=== PATIENT | male | born 1950 | race Caucasian/White ===

== ENCOUNTER 2021-05-31 09:32 | Emergency (ER) | payer MEDICARE, SELFPAY ==
--- NOTE | ~2021-05-31 | XR_ITS ---
EXAMINATION: XR chest 2V DATE: 05/31/2021 10:28 INDICATION: Dyspnea on exertion. TECHNIQUE: Frontal and lateral views of the chest were obtained. COMPARISON: Chest single view 03/19/2016, CT abdomen and pelvis 11/28/10 FINDINGS: The chest demonstrates clear lungs without pneumonia, pleural effusion, or pneumothorax. Th e heart size is normal. There is mild chronic anterior wedging of multiple thoracic vertebral bodies. IMPRESSION: 1. No acute cardiopulmonary disease. Reviewed, dictated and finalized at location A. [employer]
[2021-05-31 09:36] VITALS: BP 157/61; PULSE 67; RESP 18; TEMP 36.5; O2SAT 98
--- NOTE | 2021-05-31 10:14 | ECG_ITS ---
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
--- NOTE | 2021-05-31 10:18 | ED.SOB ---
HPI - SOB/Dyspnea General Chief Complaint: Shortness of Breath/Dyspnea Stated Complaint: Dyspnea Time Seen by Provider: 05/31/21 10:14 Source: patient Mode of arrival: ambulatory Limitations: no limitations History of Present Illness HPI Narrative: Patient is a 70-year-old male, with PMHx of HTN, HLD, GERD, and valvular regurgitation, who presents the ED with complaints of shortness breath on exertion. Patient reports he walks on the treadmill daily. Yesterday, he noticed himself feeling more fatigued than usual after walking on the treadmill. This morning, he rode his exercise bike for 20 minutes, strenuous for 15 minutes. He reported feeling fatigued in his arms and legs after riding the bike, described as a heaviness in his legs. He then began to walk on the treadmill and noticed that he had to stop 3-4 times to catch his breath after a few minutes. He states this was unusual for him is usually can walk 10+ minutes without having to stop. Patient then got dressed and walked to and from his garage (about 70 feet) and reported he felt very fatigued and short of breath while walking. He then decided to present to the ED. Patient also reports having a history of a hiatal hernia with GERD and states he has been having increased issues with acid reflux lately. He takes omeprazole daily for this. He reported having fullness in his upper chest today, which he attributed to his acid reflux. He denied any burning pain, tightness, pressure in his chest. He also denies any recent infectious symptoms, fever, chills, cough, abdominal pain, nausea, vomiting, BLE pain or edema. Patient has seen Dr. Ahumada in the past. He last had a stress test 5 years ago, which was normal at that time. He has never had a cardiac catheterization. Related Data Home Medications Medication Instructions Recorded Confirmed magnesium oxide 500 mg tablet 500 mg PO DAILY 01/12/20 01/17/21 abvmczhnbmnt-hhr-zebzb acid-vit 1 tablet PO DAILY 01/12/20 01/17/21 K-lycop 400 mcg-20 mcg-370 mcg tablet amlodipine 05/31/21 carvedilol 05/31/21 doxazosin mg 05/31/21 hydralazine 05/31/21 irbesartan mg 05/31/21 omeprazole 05/31/21 trospium mg 05/31/21 Allergies Allergy/AdvReac Type Severity Reaction Status Date / Time No Known Allergies Allergy Verified 05/31/21 10:29 Review of Systems Review of Systems: CONSTITUTIONAL: Reports increased fatigue. Denies fever, chills, or sweats. ENT: Denies rhinorrhea, congestion. CARDIOVASCULAR: Reports fullness in chest. Denies chest pressure, tightness, pain. Denies palpitations or edema. RESPIRATORY: Reports dyspnea on exertion. Denies cough. GASTROINTESTINAL: Denies abdominal pain, nausea, vomiting, or diarrhea. MUSCULOSKELETAL: Denies back pain, joint pain, or myalgia. NEUROLOGIC: Denies headache, numbness, or weakness. All systems reviewed & are unremarkable except as noted in HPI and below PMFSH Past Medical History Medical History Bladder cancer Blood glucose elevated Broken wrist Dyslipidemia Hiatal hernia with GERD Hypertension Valvular regurgitation Surgical History Surgical History History of surgery on wrist History of total right knee replacement (TKR) Status post surgical removal and fulguration of bladder neoplasm Family History Family History Mother Hypertension Cerebrovascular accident Family history of malignant neoplasm of urinary bladder Father Family history of cardiovascular disease Acute myocardial infarction Family history of coronary artery disease Social History Social History Smoking status: Former smoker Second hand tobacco smoke exposure: No Alcohol intake: current Alcohol use details: 2 beers daily. Substance use: never S
[2021-05-31 10:46] VITALS: BP 156/68; PULSE 64; RESP 13; O2SAT 97
[2021-05-31 11:02] VITALS: BP 158/65; PULSE 59; RESP 14; O2SAT 97
[2021-05-31 11:09] LABS: Partial Thromboplastin Time 54.1 SECONDS (22.3-36.8)
[2021-05-31 11:12] LABS: Alanine Aminotransferase 28 U/L (4-50); Albumin Level 4.5 g/dL (3.5-5.1); Alkaline Phosphatase 75 U/L (38-126); Anion Gap 6 mmol/L (8-16); Aspartate Amino Transferase 39 U/L (17-59); Bilirubin,Total 0.7 mg/dL (0.2-1.3); Blood Urea Nitrogen 20 mg/dL (9-20); Calcium 8.9 mg/dL (8.4-10.2); Carbon Dioxide 28 mmol/L (22-30); Chloride 102 mmol/L (98-107); Estimated CRCL calculation 77 ml/min; Estimated Glomerular Filt Rate > 60; Glucose 127 mg/dL (65-110); Potassium 4.4 mmol/L (3.4-5.0); Sodium 136 mmol/L (137-145)
[2021-05-31 11:14] LABS: Prothrombin Time 12.7 Seconds (11.1-14.7)
[2021-05-31 11:17] VITALS: BP 161/64; PULSE 57; RESP 14; O2SAT 98
[2021-05-31 11:24] LABS: NT Pro B Type Natriuretic Pept 519 pg/mL (5-100); Troponin I < 0.012 ng/mL (0.000-0.034)
[2021-05-31 11:47] VITALS: BP 163/67; PULSE 50; RESP 14; O2SAT 97
[2021-05-31 12:01] LABS: Basophils Percent Auto 0.3 % (0.2-1.2); Eosinophils Absolute Auto 0.1 K/mm3 (0-0.3); Eosinophils Percent Auto 1.2 % (0-4.4); Hematocrit 39.9 % (42.0-52.0); Hemoglobin 13.3 g/dL (14.0-18.0); Immature Granulocyte Absolute 0.02 K/mm3 (0.00-0.031); Immature Granulocyte Percent A 0.3 % (0-0.5); Lymphocytes Absolute Auto 1.02 K/mm3 (0.9-3.2); Lymphocytes Percent Auto 16.9 % (18.3-44.2); Mean Corpuscular HGB Conc 33.3 g/dl (32-36); Mean Corpuscular Hemoglobin 31.8 pg (26-34); Mean Corpuscular Volume 95.5 fl (80-100); Monocytes Absolute Auto 0.5 K/mm3 (0.1-0.6); Monocytes Percent Auto 7.6 % (2.6-8.5); Neutrophils Absolute Auto 4.5 K/mm3 (1.3-6.7); Neutrophils Percent Auto 73.7 % (45.5-73.1); Platelet Count Result 218 k/mm3 (150-375); Red Blood Count 4.18 M/mm3 (4.6-6.20); Red Cell Distribution Width 13.7 % (11.5-14.5); White Blood Count 6.1 K/mm3 (4.5-10.0)
[2021-05-31 14:10] LABS: Troponin I 0.012 ng/mL (0.000-0.034)
[2021-05-31 14:40] VITALS: BP 144/65; PULSE 56; RESP 14; O2SAT 99
== END 2021-05-31 14:40 | disposition home or self-care (01) ==
PROVIDERS: Physician Assistant; Emergency Provider Emergency Medicine; PCP Family Medicine
DX: R06.02 Shortness of breath (principal); R00.1 Bradycardia, unspecified; I10 Essential (primary) hypertension; K21.9 Gastro-esophageal reflux disease without esophagitis
CPT/HCPCS: 36415; 71046; 80053; 83880; 84484; 85025; 85610; 85730; 93005; 99284

== ENCOUNTER 2021-06-04 12:14 | Observation (INO) | payer MEDICARE, SELFPAY ==
[2021-06-04] VITALS (9 sets, daily range): BP systolic 137–174; BP diastolic 55–84; PULSE 56–68; RESP 12–20; TEMP 36.4–37; O2SAT 97–100; BMI 25.2
--- NOTE | ~2021-06-04 | US_ITS ---
EXAMINATION: US carotid duplex BI DATE: 06/06/2021 16:45 INDICATION: Dizziness. TECHNIQUE: Grayscale, color Doppler, and pulsed Doppler images of the cervical carotid arteries were obtained. The degree of vessel stenosis is placed in one of the following categories: normal, <50%, 5 0-69%, >=70% but less than near-occlusion, near-occlusion, or total occlusion. Note that percent sten osis relative to normal distal artery lumen diameter is indirectly measured from velocity measurement s as described by Jay, et al. Radiology 2003; 229:340-346. Notes: Normal: Peak systolic velocity <125 centimeters/sec and no plaque <50%. Peak systolic velocity <125 ( EDV <40; ICA/CCA PSV ratio <2.0; used these factors only a tandem lesions or low cardiac output or co ntralateral disease) 50-69 %: PSV 125-230 (EDV 40-100; ratio 2-4) >= 70% but less than near occlusion: PSV greater than 230 (EDV > 100; ratio> 4.0) Near Occlusion: PSV that is variable; markedly narrowed lumen Occlusion: Absent flow on color/spectral Doppler and no lumen on barksdale scale. COMPARISON: None. FINDINGS: RIGHT: The right common carotid artery (CCA) peak systolic velocity (PSV) is 87 cm/s. The right internal car otid artery (ICA) PSV is 74 cm/s. The right ICA end-diastolic velocity (EDV) is 19 cm/s. The right IC A/CCA PSV ratio is 0.8. The external carotid artery (ECA) PSV is 232 cm/s. There is antegrade flow in the right vertebral artery. LEFT: The left CCA PSV is 97 cm/s. The left ICA PSV is 99 cm/s. The left ICA EDV is 22 cm/s. The left ICA/C CA PSV ratio is 1.0. The ECA PSV is 346 cm/s. There is antegrade flow in the left vertebral artery. IMPRESSION: 1. Less than 50% stenosis in the right internal carotid artery by sonographic criteria. 2. Less than 50% stenosis in the left internal carotid artery by sonographic criteria. Reviewed, dictated and finalized at location B. IMPRESSION: 1. Less than 50% stenosis in the right internal carotid artery by sonographic porsche houser. 2. Less than 50% stenosis in the left internal carotid artery by sonographic aaron kowalski.
--- NOTE | ~2021-06-04 | XR_ITS ---
EXAMINATION: XR chest 2V DATE: 06/04/2021 13:22 INDICATION: Dyspnea. TECHNIQUE: Frontal and lateral views of the chest were obtained. COMPARISON: Chest 2 views 05/31/2021, CT abdomen and pelvis 11/28/2010 FINDINGS: The chest demonstrates clear lungs without pneumonia, pleural effusion, or pneumothorax. Th e heart size is normal. There is mild chronic anterior wedging of multiple vertebral bodies. IMPRESSION: 1. No acute cardiopulmonary disease. Reviewed, dictated and finalized at location A.
--- NOTE | ~2021-06-04 | CT_ITS ---
EXAMINATION: CTA chest PE protocol DATE: 06/04/2021 17:31 INDICATION: Chest pain, shortness of breath and elevated d-dimer. TECHNIQUE: Computed tomography (CT) pulmonary angiogram of the chest was performed with 100 mL Omnipa que-350 intravenous contrast. Additional 3D reconstructions utilizing coronal maximum intensity proje ction (MIP) were performed. Automated exposure control and iterative reconstruction technique were em ployed. The dose-length product was 492.39 mGy-cm. COMPARISON: None FINDINGS: Adequate but suboptimal contrast opacification of the pulmonary arteries. There is mild streak artifa ct from dense contrast in the superior vena cava and right atrium. No significant motion artifact yie lding diagnostic quality study which demonstrates no pulmonary embolism. 3 mm left upper lobe nodule. No pneumonia, pulmonary edema, pleural effusion or pneumothorax. Heart size is normal. Atherosclerot ic coronary artery calcific lesion. Small pericardial effusion. Some atherosclerotic calcific a cyst along the normal caliber thoracic aorta with no dissection. Visualized upper abdomen is unremarkable. Thoracic kyphosis with chronic appearing mild anterior wedging of several mid to lower thoracic vert ebral bodies. Moderate to severe spondylosis thoracic and lower cervical spine along with bridging os teophytes at multiple levels consistent with diffuse idiopathic skeletal hyperostosis (DISH). IMPRESSION: 1. No pulmonary embolism or other acute pulmonary disease. 2. Small pericardial effusion. 3. 3 mm left upper lobe pulmonary nodule. If the patient is low risk for lung cancer, no follow-up is needed. If the patient is high risk (i.e., history of smoking or asbestos or significant radiation e xposure), optional follow-up chest CT could be considered at 12 months. Reviewed, dictated and finalized at location A. IMPRESSION: 1. No pulmonary embolism or other acute pulmonary disease. 2. Small pericardial effusion. 3. 3 mm left upper lobe pulmonary nodule. If the patient is low risk for lung c ancer, no follow-up is needed. If the patient is high risk (i.e., history of sm oking or asbestos or significant radiation exposure), optional follow-up chest CT could be considered at 12 months.
--- NOTE | 2021-06-04 12:40 | ECG_ITS ---
Measurements Intervals [place] Rate: 58 P: 73 ME: 237 QRS: 48 QRSD: 144 T: 25 QT: 428 QTc: 422 Interpretive Statements SINUS BRADYCARDIA WITH FIRST DEGREE AV BLOCK RIGHT BUNDLE BRANCH BLOCK [120+ ms QRS DURATION, UPRIGHT V1, 40+ ms S IN I/aVL/V4/V5/V6] COMPARED TO ECG 05/31/2021 10:38:26 NO SIGNIFICANT CHANGES Electronically Signed On 06-04-2021 17:00:55 CDT by Marie Ahumada M.D.
[2021-06-04 13:01] LABS: Basophils Percent Auto 0.6 % (0.2-1.2); Eosinophils Absolute Auto 0.1 K/mm3 (0-0.3); Eosinophils Percent Auto 1.2 % (0-4.4); Hematocrit 41.9 % (42.0-52.0); Immature Granulocyte Absolute 0.01 K/mm3 (0.00-0.031); Immature Granulocyte Percent A 0.1 % (0-0.5); Lymphocytes Absolute Auto 1.06 K/mm3 (0.9-3.2); Lymphocytes Percent Auto 15.5 % (18.3-44.2); Mean Corpuscular HGB Conc 33.4 g/dl (32-36); Mean Corpuscular Hemoglobin 31.5 pg (26-34); Mean Corpuscular Volume 94.2 fl (80-100); Mean Platelet Volume 8.1 fl (7.4-10.4); Monocytes Absolute Auto 0.4 K/mm3 (0.1-0.6); Monocytes Percent Auto 6.3 % (2.6-8.5); Neutrophils Absolute Auto 5.2 K/mm3 (1.3-6.7); Neutrophils Percent Auto 76.3 % (45.5-73.1); Platelet Count Result 208 k/mm3 (150-375); Red Blood Count 4.45 M/mm3 (4.6-6.20); Red Cell Distribution Width 13.2 % (11.5-14.5); White Blood Count 6.8 K/mm3 (4.5-10.0)
[2021-06-04 13:13] LABS: Alanine Aminotransferase 24 U/L (4-50); Albumin Level 4.8 g/dL (3.5-5.1); Alkaline Phosphatase 76 U/L (38-126); Anion Gap 8 mmol/L (8-16); Aspartate Amino Transferase 34 U/L (17-59); Bilirubin,Total 0.8 mg/dL (0.2-1.3); Blood Urea Nitrogen 18 mg/dL (9-20); Calcium 8.9 mg/dL (8.4-10.2); Carbon Dioxide 26 mmol/L (22-30); Chloride 100 mmol/L (98-107); Estimated CRCL calculation 87 ml/min; Estimated Glomerular Filt Rate > 60; Glucose 130 mg/dL (65-110); Potassium 4.2 mmol/L (3.4-5.0); Sodium 134 mmol/L (137-145)
[2021-06-04 14:04] LABS: Prothrombin Time 12.3 Seconds (11.1-14.7)
[2021-06-04 14:06] LABS: Partial Thromboplastin Time 58.6 SECONDS (22.3-36.8)
[2021-06-04 14:09] LABS: NT Pro B Type Natriuretic Pept 336 pg/mL (5-100); Troponin I < 0.012 ng/mL (0.000-0.034)
--- NOTE | 2021-06-04 15:20 | ED.SOB ---
HPI - SOB/Dyspnea General Chief Complaint: Shortness of Breath/Dyspnea <Liz Nielsen PA-C - Last Filed: 06/04/21 19:08> Stated Complaint: shortness of breath <SUNITA Sandoval Last Filed: 06/04/21 19:08> Time Seen by Provider: 06/04/21 13:36 <Liz Nielsen PA-C - Last Filed: 06/04/21 19:08> Source: patient <SUNITA Sandoval Last Filed: 06/04/21 19:08> Mode of arrival: ambulatory <SUNITA Sandoval Last Filed: 06/04/21 19:08> Limitations: no limitations <SUNITA Sandoval Last Filed: 06/04/21 19:08> History of Present Illness HPI Narrative: This is a 70 year old male that presents to the ER for worsening exertional shortness of breath. Reports he was seen at the ER here for this last week. Has follow up with Cardiology outpatient on the of this month. Reports today he had return of symptoms. Reports he felt short of breath just doing the dishes. Reports some substernal chest discomfort associated. Denies fever, cough, or lower extremity edema. <Liz Nielsen PA-C - Last Filed: 06/04/21 19:08> Related Data Home Medications: Home Medications Medication Instructions Recorded Confirmed magnesium oxide 500 mg tablet 500 mg PO DAILY 01/12/20 01/17/21 ecavfuybaqjh-lum-jolcv acid-vit 1 tablet PO DAILY 01/12/20 01/17/21 K-lycop 400 mcg-20 mcg-370 mcg tablet amlodipine 05/31/21 carvedilol 05/31/21 doxazosin mg 05/31/21 hydralazine 05/31/21 irbesartan mg 05/31/21 omeprazole 05/31/21 trospium mg 05/31/21 <SUNITA Sandoval Last Filed: 06/04/21 19:08> Allergies/Adverse Reactions: Allergies Allergy/AdvReac Type Severity Reaction Status Date / Time No Known Allergies Allergy Verified 05/31/21 10:29 <SUNITA Sandoval Last Filed: 06/04/21 19:08> Review of Systems Review of Systems: CONSTITUTIONAL: Denies fever CARDIOVASCULAR: Reports chest pain. Denies edema. RESPIRATORY: Reports dyspnea. Denies cough <Liz Nielsen PA-C - Last Filed: 06/04/21 19:08> All systems reviewed & are unremarkable except as noted in HPI and below <Liz Nielsen PA-C - Last Filed: 06/04/21 19:08> PMFSH Past Medical History Medical History: Medical History Bladder cancer Blood glucose elevated Broken wrist Dyslipidemia Hiatal hernia with GERD Hypertension Valvular regurgitation <Liz Nielsen PA-C - Last Filed: 06/04/21 19:08> Surgical History Surgical History: Surgical History History of surgery on wrist History of total right knee replacement (TKR) Status post surgical removal and fulguration of bladder neoplasm <Liz Nielsen PA-C - Last Filed: 06/04/21 19:08> Family History Family History: Family History Mother Hypertension Cerebrovascular accident Family history of malignant neoplasm of urinary bladder Father Family history of cardiovascular disease Acute myocardial infarction Family history of coronary artery disease <Liz Nielsen PA-C - Last Filed: 06/04/21 19:08> Social History Social History: Social History Smoking status: Former smoker Second hand tobacco smoke exposure: No Alcohol intake: current Alcohol use details: 2 beers daily. Substance use: never Substance use type: does not use Gender identity (if verbalized by the patient): Male Sexual Orientation (if Verbalized by the Patient): Straight or Heterosexual Spiritual care concerns: No Agree to blood products: Yes <Liz Nielsen PA-C - Last Filed: 06/04/21 19:08> Exam Narrative: GENERAL: Well-appearing, well-nourished, and in no acute distress. HEAD: Normocephalic, atraumatic. EYES: EOMI. ENT: Mucous membranes moist. Oropharynx without ton
[2021-06-04 15:38] LABS: D Dimer 1.29 ug/mL (<0.48)
[2021-06-04 16:11] LABS: Troponin I < 0.012 ng/mL (0.000-0.034)
[2021-06-04 18:59] LABS: Erythrocyte Sedimentation Rate 44 mm/hr (0-20)
[2021-06-04] MEDS: ASPIRIN 81 MG CHEWABLE TABLET 324 MG PO (19:08)
[2021-06-04 20:21] LABS: Troponin I 0.019 ng/mL (0.000-0.034)
--- NOTE | 2021-06-04 20:28 | PC.NURSE ---
Patient care report called to CESARIO Rodriguez. All questions answered at this time.
--- NOTE | 2021-06-04 21:07 | ADMGEN ---
This patient, Yanick Wilson, was admitted to IMU Room 207-01. Patient/family oriented to hospital policies and general routines including ID bracelet, bed and alarms, visiting hours, pain management, procedures, bathroom and other care routines, personal items, smoking policy, room service/diet, and visiting hours. Information on how to activate the Rapid Response Team has been discussed. Patient/Family are encouraged to report perceived risks to care and to ask questions if they do not understand what they are told or what they should do.
--- NOTE | 2021-06-04 22:00 | PM.IMHP ---
H&P: HPI History of Present Illness Date/Time: 06/04/21 22:00 Chief Complaint: Shortness of breath Narrative: This is a 70 year old male who presents to the ER for worsening shortness of breath was exertional. He was in the ER last week for similar symptoms. Supposed to follow-up with cardiology later this month. Return today with worsening of his symptoms. Shortness of breath has been exertional in nature associated with substernal chest discomfort but no chest pain. No cough fever or lower extremity edema. He has history of hypertension hyperlipidemia hiatal hernia and valvular regurgitation. In the ER he was hypertensive sinus bradycardia. EKG without any acute ST-T changes. Troponin baseline is negative. D-dimer was elevated and CTA was done which was negative for PE along with small pericardial effusion. The also a 3 mm left upper lobe pulmonary nodule. BNP was elevated at 336.. He is admitted for further evaluation and management cardiology has been consulted from the ER He states he smoked for 20+ years started smoking when he was 9 years old quitted by when he was 27 years old. He did smoke 1/2 pack per day during this time. He reports he is been actively working his treadmill until brought down to months ago. He started back on an along with his stationary bike and has been feeling more winded than usual. He denies any pain with these episodes. Denies any wheezing. He does report some occasional cough. Review of Systems Review of Systems: - CONSTITUTIONAL: Denies weight loss, fever and chills. - HEENT: Denies changes in vision and hearing - RESPIRATORY: Reports exertional SOB and occasional cough. - CV: Denies palpitations and CP. - GI: Denies abdominal pain, nausea, vomiting and diarrhea. - : Denies dysuria and urinary frequency. - MSK: Denies myalgia and joint pain. - SKIN: Denies rash and pruritus. - NEUROLOGICAL: Denies headache and syncope. - PSYCHIATRIC: Denies recent changes in mood. Denies anxiety and depression. All systems reviewed & are unremarkable except as noted in HPI and below Constitutional: Constitutional: Reports fatigue and Reports weakness Neurologic: Reports weakness Endocrine: Endocrine: Reports fatigue PMFSH Past Medical History Medical History Bladder cancer Blood glucose elevated Broken wrist Dyslipidemia Hiatal hernia with GERD Hypertension Valvular regurgitation Surgical History Surgical History History of surgery on wrist History of total right knee replacement (TKR) Status post surgical removal and fulguration of bladder neoplasm Family History Family History Mother Hypertension Cerebrovascular accident Family history of malignant neoplasm of urinary bladder Father Family history of cardiovascular disease Acute myocardial infarction Family history of coronary artery disease Social History Social History Smoking packs per day: 1.5 Smoking cigarettes per day: 30.0 Years smoked: 16 Smoking pack-years: 24.00 Smoking status: Former smoker Tobacco type: cigarettes Second hand tobacco smoke exposure: No Alcohol intake: former Drinks per week: 14 Alcohol use details: 2 beers daily. Substance use: never Substance use type: does not use Gender identity (if verbalized by the patient): Male Sexual Orientation (if Verbalized by the Patient): Straight or Heterosexual Spiritual care concerns: No Agree to blood products: Yes Meds Home Medications and Allergies Home Medications Medication Instructions Recorded Confirmed Type amlodipine 10 mg PO DAILY 05/31/21 06/04/21 History carvedilol 12.5 mg PO BID 05/31/21 06/04/21 History doxazosin 4 mg PO DAILY 05/31/21 06/04/21 History hydrala
[2021-06-05] VITALS (28 sets, daily range): BP systolic 131–179; BP diastolic 50–82; PULSE 51–69; RESP 12–20; TEMP 35.8–37; O2SAT 96–100
--- NOTE | 2021-06-05 | ECHO_ITS ---
Patient Info Name: Yanick Wilson Age: 70 years : 1950 Gender: Male Ht: 70 in Wt: 176 lbs BSA: 1.99 m2 HR: 60 bpm BP: 131 / 50 mmHg Heart Rhythm: Sinus Rhythm Technical Quality: Fair Exam Date: 06/05/2021 7:33 AM Exam Location: [facility] Patient Status: Outpatient Admit Date: 06/04/2021 Staff Ordering Physician: Shaji Adams MD Disk Grinder: Sultana Caro RDCS Attending Provider: Racquel Adame PA-C Exam Type: CA echo doppler color flow Study Info Indications - SHORTNESS OF BREATH Complete two-dimensional, color flow and Doppler transthoracic echocardiogram is performed. Summary 1. Complete two-dimensional, color flow and Doppler transthoracic echocardiogram is performed. 2. Left ventricular hypertrophy with normal systolic function and grade 1 diastolic noncompliance. 3. Sclerotic aortic valve which is not stenotic. 4. Enlarged left atrium. Left Ventricle Left ventricular chamber dimension is normal. Left ventricular systolic function is normal, estimated at 55-60%. There is mild concentric increased left ventricular wall thickness. The left ventricular diastolic function is grade I diastolic dysfunction. Right Ventricle Right ventricular chamber dimension is normal. Left Atria Left atrial chamber dimension is mildly enlarged. Right Atria Right atrial chamber dimension is normal. Aortic Valve The aortic valve is trileaflet. There is mild aortic valve sclerosis. There is mild aortic valve regurgitation. Pulmonic Valve The pulmonic valve is normal. Mitral Valve The mitral valve has normal leaflets. Tricuspid Valve The tricuspid valve leaflets are normal. Pericardium/Pleural The pericardium appears normal. Aorta The aortic root size at the sinus of Valsalva is normal. Left Ventricular Outflow Tract Name Value Normal LVOT 2D LVOT Diameter 2.0 cm LVOT Doppler LVOT Peak Gradient 5 mmHg LVOT Mean Gradient 2 mmHg LVOT VTI 22 cm LVOT Stroke Volume 72 ml LVOT CO 4.0 l/min LVOT CI 2.0 l/min/m2 Pulmonic Valve Name Value Normal RVOT Doppler RVOT Peak Gradient 3 mmHg PV Doppler PV Peak Gradient 5 mmHg Mitral Valve Name Value Normal MV Doppler MV Decel [place] 219 cm/s2 MV PHT 73 ms
[2021-06-05 08:15] LABS: Basophils Percent Auto 0.7 % (0.2-1.2); Eosinophils Absolute Auto 0.1 K/mm3 (0-0.3); Eosinophils Percent Auto 1.8 % (0-4.4); Hematocrit 40.6 % (42.0-52.0); Hemoglobin 13.8 g/dL (14.0-18.0); Immature Granulocyte Absolute 0.01 K/mm3 (0.00-0.031); Immature Granulocyte Percent A 0.2 % (0-0.5); Lymphocytes Absolute Auto 0.88 K/mm3 (0.9-3.2); Lymphocytes Percent Auto 19.6 % (18.3-44.2); Mean Corpuscular Hemoglobin 31.8 pg (26-34); Mean Corpuscular Volume 93.5 fl (80-100); Mean Platelet Volume 8.2 fl (7.4-10.4); Monocytes Absolute Auto 0.4 K/mm3 (0.1-0.6); Monocytes Percent Auto 9.6 % (2.6-8.5); Neutrophils Absolute Auto 3.1 K/mm3 (1.3-6.7); Neutrophils Percent Auto 68.1 % (45.5-73.1); Platelet Count Result 197 k/mm3 (150-375); Red Blood Count 4.34 M/mm3 (4.6-6.20); Red Cell Distribution Width 13.2 % (11.5-14.5); White Blood Count 4.5 K/mm3 (4.5-10.0)
[2021-06-05 08:25] LABS: Anion Gap 8 mmol/L (8-16); Blood Urea Nitrogen 14 mg/dL (9-20); Calcium 8.5 mg/dL (8.4-10.2); Carbon Dioxide 25 mmol/L (22-30); Chloride 102 mmol/L (98-107); Estimated CRCL calculation 77 ml/min; Estimated Glomerular Filt Rate > 60; Glucose 119 mg/dL (65-110); Potassium 3.9 mmol/L (3.4-5.0); Sodium 135 mmol/L (137-145)
--- NOTE | 2021-06-05 09:31 | PM.IMPN ---
Progress Note: A&P Assessment and Plan (1) Chest pain: Qualifiers: Chest pain type: unspecified Qualified Code(s): R07.9 - Chest pain, unspecified Code(s): R07.9 - Chest pain, unspecified Status: Acute Assessment and Plan: -EKG with sinus bradycardia with first-degree AV block and right bundle branch block compared to previous EKG no new changes. -Troponin has been negative x3. -Labs unremarkable except for elevated D-dimer. CTA with no PE. -BNP mildly elevated at 336. -Small pericardial effusion noted atherosclerotic coronary artery calcific lesion. -echocardiogram ordered. echo 2018 with mild LVH EF 65-70% grade 1 diastolic dysfunction mild MR mild AR mild TR -received full dose aspirin, continue 81 mg daily with statin. Check lipid profile. -evaluated by cardiology who is going to do angiogram today (2) Dyspnea: Qualifiers: Dyspnea type: dyspnea on exertion Qualified Code(s): R06.00 - Dyspnea, unspecified Code(s): R06.00 - Dyspnea, unspecified Status: Acute Assessment and Plan: -see above -Chest x-ray with no acute cardiopulmonary disease. -He is a former smoker smoked for 16 years 1/2 pack per day -Possible underlying COPD as well -Needs evaluation with PFT as an outpatient basis. -Add albuterol inhaler p.r.n. (3) Acute pericardial effusion: Code(s): I30.9 - Acute pericarditis, unspecified Status: Acute Assessment and Plan: -as noted on CTA -echo pending -cardiology consulted -no clinical signs of tamponade (4) Hiatal hernia with GERD: Code(s): K21.9 - Gastro-esophageal reflux disease without esophagitis; K44.9 - Diaphragmatic hernia without obstruction or gangrene Status: Acute Assessment and Plan: -resume home medications -no acute issues (5) Primary hypertension: Code(s): I10 - Essential (primary) hypertension Status: Acute Assessment and Plan: -resume home medications (6) Dyslipidemia: Code(s): E78.5 - Hyperlipidemia, unspecified Status: Acute Assessment and Plan: -obtain lipid profile (7) Lung nodule: Code(s): R91.1 - Solitary pulmonary nodule Status: Acute Assessment and Plan: -3 mm left upper lobe pulmonary nodule -incidental finding -will need outpatient follow up Additional Plan Subjective Date/time seen: 06/05/21 09:31 Interval history: Pt is a 70 yo male w/ hx of HTN, valvular regurgitation, HLD, and hiatal hernia w/ GERD, admitted for shortness of breath and chest discomfort. Today patient feels okay. He has not had any episodes of cp or sob with ambulation around his room, to and from the bathroom. Reports mild LE edema which he states is chronic. He denies N/V/D/abd pain. Review of Systems Review of Systems: All systems reviewed & are unremarkable except as noted in HPI and below Exam Narrative: GENERAL: Well-appearing, well-nourished, and in no acute distress. HEAD: Normocephalic, atraumatic. EYES: PERRLA ENT: Mucous membranes moist. NECK: Supple. CHEST: Clear to auscultation. No respiratory distress. No wheezes rales or rhonchi HEART: Regular rate and rhythm. No murmur heard. Normal peripheral pulses. EXTREMITIES: Normal range of motion. 1+ edema BLE. SKIN: Warm, dry, no rash. NEURO: No focal deficits. Alert and oriented x3. PSYCH: Normal mood and affect Objective Data Vital Signs Vital Signs: Vital Signs - 24 hr 06/04/21 12:37 06/04/21 14:01 06/04/21 14:16 Temperature 98.6 F Pulse Rate 56 L 57 L 56 L Respiratory Rate 16 12 12 Blood Pressure 174/84 H 137/61 141/61 H Pulse Oximetry 100 98 99 06/04/21 14:31 06/04/21 14:46 06/04/21 21:11 Temperature 97.6 F Pulse Rate 57 L 56 L 63 Respiratory Rate 14 14 20 Blood Pressure 144/55 H 141/56 H 166/65 H Pulse Oximetry 98 97 97 06/04/21 22:00 06/04/21 22:15 06/04/21 23:46
--- NOTE | 2021-06-05 09:39 | PM.CNCAR ---
Assessment and Plan Additional Plan 70-year-old gentleman with background of hypertension who enters the hospital with a 1-2 week history of exertional symptoms concerning for myocardial ischemia. He is a rather poor historian as mentioned above. In any event his symptoms are concerning enough for I believe I am going to recommend proceeding directly with coronary angiography. He agrees with this the discussed the procedure in detail as well as the risks and he wishes to proceed. Will schedule that for later today. Further recommendations to be forthcoming following that. Mo Garcaí MD [facility] History of Present Illness History of Present Illness Consult date/time: 06/05/21 09:39 Consult reason: chest pain and shortness of breath Reason For Visit: exertional dyspnea, chest pain Narrative: This is a 70-year-old man I am seeing this morning at the request of the hospitalist because of symptoms of shortness of breath and a strange sensation in the substernal region that began within the last week or 2. The patient is a rather difficult historian regarding these matters but was being seen in the hospital after being admitted to the emergency room yesterday evening. According to the patient he recently noted the onset of some shortness of breath with activities that typically would not cause this. He has never had any significant cardiac problems in the past and is actually used to exercising regularly for fitness. He exercises on a treadmill device as well as a stationary bicycle. He noticed recently this type of exercise was making him more short of breath that was typically the case in the past. He also has noticed some episodes of being short of breath with a funny sensation in the center of the chest the substernal region with moderate walking and even sometimes just walking short distances for example out to his garage and back for across his back yd. He came to the emergency room with these symptoms says a number of days ago and was dismissed with plans to be seen as an outpatient in the office. He came back with the symptoms continuing yesterday and was this time admitted to the hospital. His biomarkers are negative for acute coronary syndrome. His ECG shows a sinus mechanism with a right bundle branch block. He is not reporting any orthopnea PND edema palpitations or syncope. He was seen in our office by my partner, Dr. Ahumada in 2018 for preoperative cardiac risk assessment prior to orthopedic surgery. He had an echocardiogram at that time that was a favorable exam with normal LV systolic function and small amount of aortic and mitral valve insufficiency. No cardiac pathology was identified and so he was not followed in the office since then. Review of Systems Constitutional: Constitutional: Reports no additional constitutional complaints Eyes: Eyes: Reports no additional eye complaints ENT: Reports system reviewed and no additional complaints, except as documented Cardiovascular: Cardiovascular: Reports as per HPI Respiratory: Respiratory: Reports as per HPI Gastrointestinal: Gastrointestinal: Reports no additional gastrointestinal complaints Musculoskeletal: Musculoskeletal: Reports no additional musculoskeletal complaints Integumentary/Breasts: Skin/Breast: Reports system reviewed and no additional complaints, except as docu Neurologic: Reports system reviewed and no additional complaints, except as documented Endocrine: Endocrine: Reports no additional endocrine complaints Hematologic/Lymphatic: Hematologic/Lymphatic: Reports no additional hematologic/lymphatic complaints Allergic/Immunologic: Allergic/Immunologic: Reports no additional allergic/immunologic complaints [facility] Past Medical History Medical History Bladder cancer Blood glucose elevated Broken wrist Dyslipidemia Hiatal hernia with GERD Hypertension Valvular regurgitation Surgical Histor
--- NOTE | 2021-06-05 11:24 | WPDMODSED ---
Moderate Sedation Note-Pt Data Patient Data Diagnosis: recent onset of exertional dyspnea with chest discomfort longstanding hypertension Present Complaint: exertional shortness of breath with modest retrosternal chest discomfort Procedure to be performed/Plan: left heart catheterization Allergies Allergy/AdvReac Type Severity Reaction Status Date / Time No Known Allergies Allergy Verified 05/31/21 10:29 Home Medications Medication Instructions Recorded Confirmed Type amlodipine 10 mg PO DAILY 05/31/21 06/04/21 History carvedilol 12.5 mg PO BID 05/31/21 06/04/21 History doxazosin 4 mg PO DAILY 05/31/21 06/04/21 History hydralazine 50 mg PO TID 05/31/21 06/04/21 History irbesartan 300 mg PO DAILY 05/31/21 06/04/21 History omeprazole 40 mg PO BID 05/31/21 06/04/21 History trospium 20 mg PO DAILY 06/04/21 06/04/21 History Current Medications: Active Medications Albuterol (Albuterol Sulfate (*Sp) Aerosol 1 Puff) 2 puff INHALATION Q6HRT PRN PRN Reason: Shortness Of Breath Amlodipine Besylate (Amlodipine Besylate 5 Mg Tablet) 10 mg PO DAILY [facility] Aspirin (Aspirin 81 Mg Enteric Tablet) 81 mg PO QAM [facility] Carvedilol (Carvedilol 12.5 Mg Tablet) 12.5 mg PO BIDWM [facility] Doxazosin Mesylate (Doxazosin Mesylate 4 Mg Tablet) 4 mg PO DAILY [facility] Enoxaparin Sodium (Enoxaparin 40 Mg/0.4 Ml Syringe) 40 mg SUB-Q DAILY [facility] Hydralazine HCl (Hydralazine Hcl 50 Mg Tablet) 50 mg PO TIDWM [facility] Irbesartan (Irbesartan 150 Mg Tablet) 300 mg PO DAILY [facility] Non-Formulary Medication (Trospium) 20 mg PO DAILY [facility] Stop: 07/05/21 08:59 Pantoprazole Sodium (Pantoprazole 40 Mg Tablet) 40 mg PO BID [facility] Perflutren Lipid Microsphere (Perflutren Lipid Microspheres 1.5 Ml Vial Diluted To 10 Ml Total Volume) 0 ml IV PUSH ONCE PRN; Protocol PRN Reason: adequate visualization Sedation/Anesthesia: No previous sedation/anesthesia problems (including family history). [facility] Past Medical History Medical History Bladder cancer Blood glucose elevated Broken wrist Dyslipidemia Hiatal hernia with GERD Hypertension Valvular regurgitation Surgical History Surgical History History of surgery on wrist History of total right knee replacement (TKR) Status post surgical removal and fulguration of bladder neoplasm Family History Family History Mother Hypertension Cerebrovascular accident Family history of malignant neoplasm of urinary bladder Father Family history of cardiovascular disease Acute myocardial infarction Family history of coronary artery disease Social History Social History Smoking packs per day: 1.5 Smoking cigarettes per day: 30.0 Years smoked: 16 Smoking pack-years: 24.00 Smoking status: Former smoker Tobacco type: cigarettes Second hand tobacco smoke exposure: No Alcohol intake: former Drinks per week: 14 Alcohol use details: 2 beers daily. Substance use: never Substance use type: does not use Gender identity (if verbalized by the patient): Male Sexual Orientation (if Verbalized by the Patient): Straight or Heterosexual Spiritual care concerns: No Agree to blood products: Yes Mod Sed Physical Exam Physical Exam Pre Procedural Exam: Normal: Appearance ( healthy-appearing gentleman his stated age no distress), Neck, Throat, Airway, Lungs, Heart Size, Heart Rate, Heart Rhythm, Neuro Exam and Extremities Hours since solid foods: 12 Hours since liquid intake: 12 Mallampati Classification: class II Internal Medicine - PN: Obj Da Vital Signs Vital Signs: Vital Signs - 24 hr 06/04/21 12:37 06/04/21 14:01 06/04/21 14:16 Temperature 37.0 C Pulse Rate 56 L 57 L 56 L Respiratory Rate 16 12 12 Blood Pressure 174/84 H 137/61 141/61 H Pulse Oximetry 100 98 99 06/04
--- NOTE | 2021-06-05 12:27 | P.PCNCC_ITS ---
Cardiac Cath Procedure Note Date of procedure:: 06/05/21 Performing physician:: Mo García MD Indication:: exertional dyspnea of recent onset possible ischemic equivalent Brief clinical history:: this is a 70-year-old man with hypertension who has been experiencing exertional shortness of breath for about 1-2 weeks. The patient has some very mild chest symptoms which he denies is any sort of pain. In any event because of the symptoms and recent onset angiography has been recommended. Acute coronary syndrome has been ruled out by serial enzymes. Procedure Procedure performed:: Left ventriculogram coronary angiogram Sedation/Medication given:: fentanyl 50 mg Versed 2 mg case start time 1158 a.m. case end time 12:23 p.m. Access site:: right femoral artery Estimated blood loss:: 25 cc Procedure note:: the patient was brought to the cardiac catheterization lab where the right femoral triangle was prepared and draped in the usual fashion. Anesthesia was given with 1% lidocaine infiltrated locally. Using modified Seldinger technique a 5 [place] sheath was placed into the right femoral artery left heart catheterization was then carried out. A 5 [place] angled pigtail catheter used to document left-sided hemodynamics and to inject LV g in the STODDARD projection. After this standard 5 [place] FL4 catheter was used to engage inject the left coronary artery. I completed the left coronary injections using a 5 [place] FL 3.5 catheter. Following this the right coronary artery was engaged injected in standard 5 [place] JR4 catheter. Angiogram was then done of the femoral artery through the sheath after which I elected to remove the catheter with direct manual compression. 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 Findings:: Hemodynamics: Central aortic pressure is 136 over 56 left ventricle 136/0 end systolic 8 there is systolic gradient on pullback across the aortic valve. Left ventricle: The left ventricle is normal in size there is moderate concentric hypertrophy noted. There contracts well preserved in all segments with an ejection fraction of 70%. The left main coronary artery is short bifurcating almost immediately into the LAD and circumflex. There is no significant left main lesion. The left anterior descending is a large caliber artery extending down to and just around the apex. The proximal 3rd of the LAD is moderately calcified. Angiographic stenosis in the LAD. There are minimal luminal irregularities noted proximally. The LAD was not filled well with JL4 catheter but was filled well with the JL 3.5 the circumflex is a large caliber vessel which is dominant to the posterior circulation. The proximal trunk of the circumflex has mild atherosclerotic stenosis of about 50-60%. The origin of the 1st OM has some ostial stenosis which is eccentric probably about 70% stenosis in that vessel. The distal marginals left posterolateral some left PDA are not disease. The right coronary artery is small in caliber non dominant providing flow to the right ventricle and is angiographically non disease. Conclusion:: 1. Left coronary dominant circulation with single-vessel coronary disease with mild stenosis in the proximal trunk of the circumflex as well as moderate stenosis in the 1st OM branch. 2. Moderate calcification of the LAD/circumflex 3. non diseased nondominant right coronary artery 4. vigorous left ventricular systolic function Mo García MD [facility]
--- NOTE | 2021-06-05 13:37 | SUR.PHASEII ---
report called to trish pedraza. patient's groin soft/no hematoma noted, dressing d/c/i. meal tray ordered to be delivered to room, will transfer patient via bed at 1400. vss/ will continue to monitor.
[2021-06-05] MEDS: SODIUM CHLORIDE 0.9% IV 1,000 ML 125 ML IV CONT (13:59)
[2021-06-05] MEDS: hydrALAZINE HCL 50 MG TABLET PO (18:46)
[2021-06-05] MEDS: PANTOPRAZOLE 40 MG TABLET PO (18:46)
[2021-06-06] VITALS (19 sets, daily range): BP systolic 109–165; BP diastolic 52–76; PULSE 48–70; RESP 14–20; TEMP 36–36.8; O2SAT 98–100
[2021-06-06 05:08] LABS: Basophils Percent Auto 0.7 % (0.2-1.2); Eosinophils Absolute Auto 0.1 K/mm3 (0-0.3); Eosinophils Percent Auto 0.9 % (0-4.4); Hematocrit 38.6 % (42.0-52.0); Hemoglobin 13.2 g/dL (14.0-18.0); Immature Granulocyte Absolute 0.01 K/mm3 (0.00-0.031); Immature Granulocyte Percent A 0.2 % (0-0.5); Lymphocytes Absolute Auto 1.31 K/mm3 (0.9-3.2); Lymphocytes Percent Auto 22.5 % (18.3-44.2); Mean Corpuscular HGB Conc 34.2 g/dl (32-36); Mean Corpuscular Volume 93.5 fl (80-100); Mean Platelet Volume 8.6 fl (7.4-10.4); Monocytes Absolute Auto 0.5 K/mm3 (0.1-0.6); Monocytes Percent Auto 9.1 % (2.6-8.5); Neutrophils Absolute Auto 3.9 K/mm3 (1.3-6.7); Neutrophils Percent Auto 66.6 % (45.5-73.1); Platelet Count Result 218 k/mm3 (150-375); Red Blood Count 4.13 M/mm3 (4.6-6.20); Red Cell Distribution Width 12.9 % (11.5-14.5); White Blood Count 5.8 K/mm3 (4.5-10.0)
[2021-06-06 05:17] LABS: Alanine Aminotransferase 19 U/L (4-50); Albumin Level 4.1 g/dL (3.5-5.1); Alkaline Phosphatase 58 U/L (38-126); Anion Gap 7 mmol/L (8-16); Aspartate Amino Transferase 29 U/L (17-59); Blood Urea Nitrogen 14 mg/dL (9-20); Calcium 8.3 mg/dL (8.4-10.2); Carbon Dioxide 26 mmol/L (22-30); Chloride 103 mmol/L (98-107); Cholesterol 178 mg/dL (0-200); Estimated CRCL calculation 77 ml/min; Estimated Glomerular Filt Rate > 60; Glucose 107 mg/dL (65-110); HDL Direct 43 mg/dL; Potassium 3.6 mmol/L (3.4-5.0); Sodium 136 mmol/L (137-145); Triglycerides 58 mg/dL (<150)
[2021-06-06 05:28] LABS: LDL Cholesterol Direct 96 mg/dL
[2021-06-06] MEDS: ASPIRIN 81 MG ENTERIC TABLET PO (09:11)
[2021-06-06] MEDS: hydrALAZINE HCL 50 MG TABLET PO ×3 (09:11→17:34)
[2021-06-06] MEDS: PANTOPRAZOLE 40 MG TABLET PO ×2 (09:12→17:34)
[2021-06-06] MEDS: carvediloL 12.5 MG TABLET PO ×2 (09:12→17:34)
[2021-06-06] MEDS: IRBESARTAN 150 MG TABLET 300 MG PO (09:13)
[2021-06-06] MEDS: DOXAZOSIN MESYLATE 4 MG TABLET PO (09:19)
[2021-06-06] MEDS: ISOSORBIDE MONONITRATE 30 MG TAB.ER.24H PO (12:18)
[2021-06-06] MEDS: ROSUVASTATIN 10 MG TABLET PO (12:18)
--- NOTE | 2021-06-06 12:21 | PM.PNCARD ---
Progress Note: A&P Assessment and Plan (1) Dyspnea: Qualifiers: Dyspnea type: dyspnea on exertion Qualified Code(s): R06.00 - Dyspnea, unspecified Code(s): R06.00 - Dyspnea, unspecified Status: Acute Assessment and Plan: Episodic exertional dyspnea and fatigue. Cardiac catheterization does show some [id number] disease and medical therapy is recommended. Reviewed catheterization results with patient. He was also started on Imdur by Dr. García. Started on aspirin Add atorvastatin 40 mg daily; reviewed risks and benefits with patient Post cath instructions reviewed with patient. I also note the patient is very bradycardic at times and wonder if he may have a degree of chronotropic incompetence, perhaps aggravated by carvedilol. Will see how he does on Imdur (just make 1 change at a time) and he has a follow-up appointment Dr. Orourke on Saturday, but we may want to reduce the carvedilol dose and do some outpatient monitoring to evaluate heart rate response to activity and association of bradycardia with symptoms. . (2) Primary hypertension: Code(s): I10 - Essential (primary) hypertension Status: Acute Assessment and Plan: Controlled (3) Bradycardia: Code(s): R00.1 - Bradycardia, unspecified Status: Acute Assessment and Plan: Noted, takes carvedilol 12.5 mg b.i.d., will follow-up in office (4) Hypercholesterolemia: Code(s): E78.00 - Pure hypercholesterolemia, unspecified Status: Acute Assessment and Plan: Total cholesterol 178, LDL cholesterol 96 Subjective Date/time seen: 06/06/21 12:21 Interval history: Follow-up for exertional dyspnea 06/06/2021: Cardiac catheterization yesterday showed moderate calcification of the Left anterior descending and circumflex, mild proximal circumflex stenosis with moderate stenosis of 1st obtuse marginal, good left ventricular function. Medical therapy was recommended, I he was started on Imdur. Patient is feeling well today, has many questions.. He is bradycardic quite a lot, with heart rates in the 50s, and sometimes lower. He has noted to be in the 40s at times at home. No dizziness or syncope. Review of Systems Constitutional: Constitutional: Reports fatigue and Reports weakness Eyes: Eyes: Reports no additional eye complaints ENT: Denies epistaxis Cardiovascular: Cardiovascular: Denies chest pain, Denies pedal edema, Denies leg edema and Denies lightheadedness Respiratory: Respiratory: Reports dyspnea and Reports dyspnea on exertion Gastrointestinal: Gastrointestinal: Denies abdominal pain Genitourinary: Genitourinary: Denies dysuria Musculoskeletal: Musculoskeletal: Reports neck pain Integumentary/Breasts: Skin/Breast: Denies rash Neurologic: Denies confusion Exam Narrative: Pleasant older male in no distress Const: General: comfortable and no acute distress HENMT: General nose exam: no epistaxis Eyes: EOM: EOMs intact bilaterally Neck: Neck: supple Resp: Effort & Inspection: normal respiratory effort Auscultation: clear to auscultation bilaterally Cardio: Rate: regular rate Rhythm: regular rhythm Heart sounds: no murmurs GI: Inspection: non-distended GI Palp: Yes Soft to palpation Skin: General skin exam: no rashes or lesions noted Other: Cath site dressing is dry and intact, no hematoma or ecchymosis. Right pedal pulses are intact Neuro: Cognition (Neuro): normal cognition Speech: normal speech Extrem: General: no edema and no pedal edema Psych: Mental Status: mental status grossly normal Affect: normal affect Objective Data Vital Signs Vital Signs: Vital Signs - 24 hr 06/05/21 12:40 06/05/21 12:45 06/05/21 12:50 Temperature Pulse Rate 64 66 67 Respiratory Rate 14 16 15 Blood Pressure 148/66 H 160/68 H 156/80 H Pulse Oximetry 97 98 98 06/05/21 12:55 06/05/21 13:00 06/05/21 13:15 Temperature Pulse Rate 69 66 59 L Re
--- NOTE | 2021-06-06 13:58 | PM.DS ---
DS: Admitting Diagnosis Discharge Date 06/06/21 Admitting Diagnosis chest pain DS: Discharge Diagnosis Discharge Diagnosis (1) Chest pain: Qualifiers: Chest pain type: unspecified Qualified Code(s): R07.9 - Chest pain, unspecified Code(s): R07.9 - Chest pain, unspecified Status: Acute Assessment and Plan: -EKG with sinus bradycardia with first-degree AV block and right bundle branch block compared to previous EKG no new changes. -Troponin has been negative x3. -Labs unremarkable except for elevated D-dimer. CTA with no PE. -BNP minimally elevated at 336. -Small pericardial effusion noted, atherosclerotic coronary artery calcific lesion. -echo 2018 with mild LVH EF 65-70% grade 1 diastolic dysfunction mild MR mild AR mild TR -echo here: Left ventricular hypertrophy with normal systolic function and grade 1 diastolic noncompliance. Sclerotic aortic valve which is not stenotic. Enlarged left atrium. -received full dose aspirin, continue 81 mg daily with statin. -evaluated by cardiology, angiogram yesterday with mild to moderate disease. -per cardiology: stable for discharge. Continue aspirin, Imdur, rosuvastatin. Follow up outpatient with Dr. Orourke Saturday in clinic. (2) Dyspnea: Qualifiers: Dyspnea type: dyspnea on exertion Qualified Code(s): R06.00 - Dyspnea, unspecified Code(s): R06.00 - Dyspnea, unspecified Status: Acute Assessment and Plan: -see above -Chest x-ray with no acute cardiopulmonary disease. -He is a former smoker smoked for 16 years 1/2 pack per day -Possible underlying COPD as well -Needs evaluation with PFT as an outpatient basis. -Add albuterol inhaler p.r.n. (3) Acute pericardial effusion: Code(s): I30.9 - Acute pericarditis, unspecified Status: Acute Assessment and Plan: -as noted on CTA -echo pending -cardiology consulted -no clinical signs of tamponade (4) Hiatal hernia with GERD: Code(s): K21.9 - Gastro-esophageal reflux disease without esophagitis; K44.9 - Diaphragmatic hernia without obstruction or gangrene Status: Acute Assessment and Plan: -resume home medications -no acute issues (5) Primary hypertension: Code(s): I10 - Essential (primary) hypertension Status: Acute Assessment and Plan: -resume home medications (6) Dyslipidemia: Code(s): E78.5 - Hyperlipidemia, unspecified Status: Acute Assessment and Plan: -cholesterol panel WNL -continue statin (7) Lung nodule: Code(s): R91.1 - Solitary pulmonary nodule Status: Acute Assessment and Plan: -3 mm left upper lobe pulmonary nodule -incidental finding -will need outpatient follow up DS: Summary Hospital Course Reason for hospitalization: Pt is a 70 yo male w/ hx of HTN, valvular regurgitation, HLD, and hiatal hernia w/ GERD, admitted for shortness of breath and chest discomfort. Please see HPI for further details. Hospital Course: Please see above for details of hospital course. Status at Discharge Cognitive/behavioral status at discharge: stable Functional status at discharge: independent ambulation Time Spent with Patient Time attestation: Total time spent providing and/or coordinating discharge services: 32 Time spent: Greater than 30 minutes Exam Narrative: GENERAL: Well-appearing, well-nourished, and in no acute distress. HEAD: Normocephalic, atraumatic. EYES: PERRLA ENT: Mucous membranes moist. NECK: Supple. CHEST: Clear to auscultation. No respiratory distress. No wheezes rales or rhonchi HEART: Regular rate and rhythm. No murmur heard. Normal peripheral pulses. EXTREMITIES: Normal range of motion. 1+ edema BLE. SKIN: Warm, dry, no rash. NEURO: No focal deficits. Alert and oriented x3. PSYCH: Normal mood and affect DS: Data Data Completed and Pending Labs on day of discharg
--- NOTE | 2021-06-06 14:43 | PM.IMPN ---
Progress Note: A&P Assessment and Plan (1) Chest pain: Qualifiers: Chest pain type: unspecified Qualified Code(s): R07.9 - Chest pain, unspecified Code(s): R07.9 - Chest pain, unspecified Status: Acute Assessment and Plan: -EKG with sinus bradycardia with first-degree AV block and right bundle branch block compared to previous EKG no new changes. -Troponin has been negative x3. -Labs unremarkable except for elevated D-dimer. CTA with no PE. -BNP minimally elevated at 336. -Small pericardial effusion noted, atherosclerotic coronary artery calcific lesion. -echo 2018 with mild LVH EF 65-70% grade 1 diastolic dysfunction mild MR mild AR mild TR -echo here: Left ventricular hypertrophy with normal systolic function and grade 1 diastolic noncompliance. Sclerotic aortic valve which is not stenotic. Enlarged left atrium. -evaluated by cardiology, angiogram yesterday with mild to moderate disease. -Continue aspirin, Imdur, rosuvastatin. Follow up outpatient with Dr. Orourke Saturday in clinic. (2) Dyspnea: Qualifiers: Dyspnea type: dyspnea on exertion Qualified Code(s): R06.00 - Dyspnea, unspecified Code(s): R06.00 - Dyspnea, unspecified Status: Acute Assessment and Plan: -see above -Chest x-ray with no acute cardiopulmonary disease. -He is a former smoker smoked for 16 years 1/2 pack per day -Possible underlying COPD as well -Needs evaluation with PFT as an outpatient basis. -Add albuterol inhaler p.r.n. (3) Acute pericardial effusion: Code(s): I30.9 - Acute pericarditis, unspecified Status: Acute Assessment and Plan: -as noted on CTA -echo pending -cardiology consulted -no clinical signs of tamponade -not seen on echo 06/05/21 (4) Hiatal hernia with GERD: Code(s): K21.9 - Gastro-esophageal reflux disease without esophagitis; K44.9 - Diaphragmatic hernia without obstruction or gangrene Status: Acute Assessment and Plan: -resume home medications -no acute issues (5) Primary hypertension: Code(s): I10 - Essential (primary) hypertension Status: Acute Assessment and Plan: -resume home medications (6) Dyslipidemia: Code(s): E78.5 - Hyperlipidemia, unspecified Status: Acute Assessment and Plan: -cholesterol panel WNL -continue statin (7) Lung nodule: Code(s): R91.1 - Solitary pulmonary nodule Status: Acute Assessment and Plan: -3 mm left upper lobe pulmonary nodule -incidental finding -will need outpatient follow up (8) Blurry vision: Code(s): H53.8 - Other visual disturbances Status: Acute Assessment and Plan: -noted today 06/06/21 -associated with headache and sob -will check CT head, consider MRI -no focal deficits Additional Plan Subjective Date/time seen: 06/06/21 14:43 Interval history: Pt is a 70 yo male w/ hx of HTN, valvular regurgitation, HLD, and hiatal hernia w/ GERD, admitted for shortness of breath and chest discomfort. Today patient was walking to the bathroom when he started to feel more sob with blurry vision and a headache. Symptoms improved when he sat down but he still feels anxious about going home. No chest pain. Review of Systems Review of Systems: All systems reviewed & are unremarkable except as noted in HPI and below Exam Narrative: GENERAL: Well-appearing, well-nourished, and in no acute distress. HEAD: Normocephalic, atraumatic. EYES: PERRLA ENT: Mucous membranes moist. NECK: Supple. CHEST: Clear to auscultation. No respiratory distress. No wheezes rales or rhonchi HEART: Regular rate and rhythm. No murmur heard. Normal peripheral pulses. EXTREMITIES: Normal range of motion. 1+ edema BLE. SKIN: Warm, dry, no rash. NEURO: No focal deficits. Alert and oriented x3. PSYCH: Normal mood and affect Objective Data Vital Signs
--- NOTE | 2021-06-06 16:42 | PC.NURSE ---
Received patient this am. Patient is A/O x 4. No c/o pain and ambulatory. Patient was scheduled to go home pending Cardiology assessment. Dr. Ahumada assessed patient at approximately 12:45 pm. Cardiology recommended patient to be discharged home. At approximately 1415 patient stated that he got up and began to feel short of breath and his eyes were feeling funny . He stated that it felt as if he has a headache and the sensation radiated from his eyes to his head. KENDY Damon was notified of the change in status. Orthostats and a CT of the head was ordered. Patient currently in stable condition. Will continue to monitor.
[2021-06-06 20:39] LABS: Glucose Point of Care 126 mg/dl (65-105)
[2021-06-06] MEDS: ACETAMINOPHEN 325 MG TABLET 650 MG PO (21:04)
[2021-06-06] MEDS: DOCUSATE SODIUM 100 MG CAPSULE PO (21:05)
[2021-06-07] VITALS (8 sets, daily range): BP systolic 120–144; BP diastolic 48–66; PULSE 48–70; RESP 15–18; TEMP 36.2–36.7; O2SAT 98–99
[2021-06-07 05:07] LABS: Basophils Percent Auto 0.2 % (0.2-1.2); Eosinophils Absolute Auto 0.1 K/mm3 (0-0.3); Eosinophils Percent Auto 1.4 % (0-4.4); Hematocrit 33.8 % (42.0-52.0); Hemoglobin 11.8 g/dL (14.0-18.0); Immature Granulocyte Absolute 0.01 K/mm3 (0.00-0.031); Immature Granulocyte Percent A 0.2 % (0-0.5); Lymphocytes Absolute Auto 1.53 K/mm3 (0.9-3.2); Lymphocytes Percent Auto 25.9 % (18.3-44.2); Mean Corpuscular HGB Conc 34.9 g/dl (32-36); Mean Corpuscular Hemoglobin 31.8 pg (26-34); Mean Corpuscular Volume 91.1 fl (80-100); Mean Platelet Volume 8.1 fl (7.4-10.4); Monocytes Absolute Auto 0.6 K/mm3 (0.1-0.6); Monocytes Percent Auto 10.7 % (2.6-8.5); Neutrophils Absolute Auto 3.7 K/mm3 (1.3-6.7); Neutrophils Percent Auto 61.6 % (45.5-73.1); Platelet Count Result 175 k/mm3 (150-375); Red Blood Count 3.71 M/mm3 (4.6-6.20); Red Cell Distribution Width 12.7 % (11.5-14.5); White Blood Count 5.9 K/mm3 (4.5-10.0)
[2021-06-07 05:15] LABS: Alanine Aminotransferase 17 U/L (4-50); Albumin Level 3.8 g/dL (3.5-5.1); Alkaline Phosphatase 50 U/L (38-126); Anion Gap 5 mmol/L (8-16); Aspartate Amino Transferase 29 U/L (17-59); Bilirubin,Total 1.2 mg/dL (0.2-1.3); Blood Urea Nitrogen 14 mg/dL (9-20); Calcium 8.2 mg/dL (8.4-10.2); Carbon Dioxide 29 mmol/L (22-30); Chloride 98 mmol/L (98-107); Estimated CRCL calculation 69 ml/min; Estimated Glomerular Filt Rate > 60; Glucose 107 mg/dL (65-110); Potassium 3.7 mmol/L (3.4-5.0); Sodium 132 mmol/L (137-145)
--- NOTE | 2021-06-07 06:53 | PHAR ---
PHARMACIST VERIFIED HOME MED: * USE FROM HOME * Trospium 20 mg Tablet take one tablet by mouth once daily
[2021-06-07] MEDS: amLODIPine BESYLATE 5 MG TABLET 10 MG PO (08:15)
[2021-06-07] MEDS: DOXAZOSIN MESYLATE 4 MG TABLET PO (08:15)
[2021-06-07] MEDS: hydrALAZINE HCL 50 MG TABLET PO ×2 (08:15→12:24)
[2021-06-07] MEDS: ASPIRIN 81 MG ENTERIC TABLET PO (08:15)
[2021-06-07] MEDS: IRBESARTAN 150 MG TABLET 300 MG PO (08:15)
[2021-06-07] MEDS: DOCUSATE SODIUM 100 MG CAPSULE PO (08:15)
[2021-06-07] MEDS: PANTOPRAZOLE 40 MG TABLET PO (08:16)
[2021-06-07] MEDS: ISOSORBIDE MONONITRATE 30 MG TAB.ER.24H PO (08:16)
[2021-06-07] MEDS: ROSUVASTATIN 10 MG TABLET PO (08:16)
--- NOTE | 2021-06-07 11:03 | PC.NURSE ---
1055-cardiology at bedside to speak with pt.
--- NOTE | 2021-06-07 11:03 | PM.PNCARD ---
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 He did have an episode of some orthostatic vital signs not clear to me if this was the result of his where the reason for his symptomatology. In any event looking at the medication list I would recommend stopping his doxazosin at this time since it is by far the least important of all of these agents. If orthostasis continues to be problematic then hydralazine should be either discontinued or decreased next. He does have follow-up scheduled in our office for Saturday of next week and where this can be checked again and otherwise he seems to be stable from a my perspective for discharge today. Mo García MD [facility] Subjective Date/time seen: Date of service: 06/07/21 11:03 Interval history: Follow-up visit in this 70-year-old man with: Angiographically [id number] coronary artery disease involving moderate proximal circumflex stenosis desire to treat this medically. Patient was to be discharged yesterday but was kept in the hospital because of some unusual symptoms of what he is describing is visual strain and some mild headache when he was standing up yesterday. Vital signs showed some degree of orthostatic hypotension at that time. He is ambulating this morning without any problems. He is on a multiple drug regimen including amlodipine, carvedilol, doxazosin, hydralazine, Irbesartan. Exam Const: General: comfortable and no acute distress Other: Pleasant gentleman comfortable cooperative no distress of any kind HENMT: Mouth: Yes moist mucous membranes Eyes: Sclera: sclerae normal Neck: Neck: supple and no JVD Resp: Effort & Inspection: normal respiratory effort Auscultation: clear to auscultation bilaterally Cardio: Rate: regular rate Rhythm: regular rhythm GI: GI Palp: Yes Soft to palpation Auscultation: normal bowel sounds Skin: General skin exam: normal color Neuro: Cognition (Neuro): normal cognition Extrem: General: normal to inspection Objective Data Vital Signs Vital Signs: Vital Signs - 24 hr 06/06/21 12:00 06/06/21 12:48 06/06/21 16:00 Temperature 36.7 C Pulse Rate 52 L 50 L 52 L Respiratory Rate 18 18 18 Blood Pressure 149/52 H 130/55 L 149/52 H Pulse Oximetry 100 99 100 06/06/21 17:34 06/06/21 18:00 06/06/21 19:46 Temperature 36.0 C L Pulse Rate 58 L 67 63 Respiratory Rate 16 Blood Pressure 141/66 H Pulse Oximetry 98 06/06/21 19:47 06/06/21 19:48 06/06/21 19:49 Temperature Pulse Rate Respiratory Rate Blood Pressure 141/66 H 125/69 109/52 L Pulse Oximetry 06/06/21 20:00 06/06/21 22:00 06/07/21 00:00 Temperature 36.4 C Pulse Rate 59 L 55 L 61 Respiratory Rate 16 Blood Pressure 129/60 Pulse Oximetry 98 06/07/21 02:00 06/07/21 04:00 06/07/21 06:00 Temperature 36.4 C Pulse Rate 52 L 48 L 69 Respiratory Rate 15 Blood Pressure 143/66 H Pulse Oximetry 99 06/07/21 08:00 06/07/21 10:00 Temperature 36.2 C L Pulse Rate 64 60 Respiratory Rate 16 Blood Pressure 144/60 H Pulse Oximetry 99 Intake/Output Intake/Output: Intake & Output 06/04/21 06/05/21 06/06/21 06/07/21 23:59 23:59 23:59 23:59 Intake Total 1460 2055 620 Output Total 1300 0 Balance 160 2055 620 Meds/Results Medications: Active Medications Generic Name Dose Route Start Last Admin Trade Name Freq PRN Reason Stop Dose Admin Acetaminophen 650 mg 06/06/21 20:47 06/06/21 21:04 Acetaminophen 325 Mg Tablet PO 650 mg Q6H PRN Administration Mild Pain (1-3) or Fever Albuterol 2 puff 06/05/21 02:33 Albuterol Sulfate (*Sp) Aerosol 1 Puff INHALATION Q6HRT PRN Shortness Of Breath Amlodipine Besylate 10 mg 06/05/21 09:00 06/07/21 08:15 Amlodipine Besylate 5 Mg Tablet PO 10 mg DAILY ELTON Administration Aspirin 81 mg 06/05/21 09:00 06/07/21 08:15 Asp
--- NOTE | 2021-06-07 11:10 | PM.IMPN ---
Progress Note: A&P Assessment and Plan (1) Chest pain: Qualifiers: Chest pain type: unspecified Qualified Code(s): R07.9 - Chest pain, unspecified Code(s): R07.9 - Chest pain, unspecified Status: Acute Assessment and Plan: -EKG with sinus bradycardia with first-degree AV block and right bundle branch block compared to previous EKG no new changes. -Troponin has been negative x3. -Labs unremarkable except for elevated D-dimer. CTA with no PE. -BNP minimally elevated at 336. -Small pericardial effusion noted, atherosclerotic coronary artery calcific lesion. -echo 2018 with mild LVH EF 65-70% grade 1 diastolic dysfunction mild MR mild AR mild TR -echo here: Left ventricular hypertrophy with normal systolic function and grade 1 diastolic noncompliance. Sclerotic aortic valve which is not stenotic. Enlarged left atrium. -evaluated by cardiology, angiogram yesterday with mild to moderate disease. -Continue aspirin, Imdur, rosuvastatin. Follow up outpatient with Dr. Orourek Saturday in clinic. (2) Dyspnea: Qualifiers: Dyspnea type: dyspnea on exertion Qualified Code(s): R06.00 - Dyspnea, unspecified Code(s): R06.00 - Dyspnea, unspecified Status: Acute Assessment and Plan: -see above -Chest x-ray with no acute cardiopulmonary disease. -He is a former smoker smoked for 16 years 1/2 pack per day -Possible underlying COPD as well -Needs evaluation with PFT as an outpatient basis. -Add albuterol inhaler p.r.n. (3) Acute pericardial effusion: Code(s): I30.9 - Acute pericarditis, unspecified Status: Acute Assessment and Plan: -as noted on CTA -echo revealed an LVEF of 55-60% with grade 1 diastolic dysfunction -cardiology consulted, appreciate assistance and recommendations -no clinical signs of tamponade -not seen on echo 06/05/21 (4) Hiatal hernia with GERD: Code(s): K21.9 - Gastro-esophageal reflux disease without esophagitis; K44.9 - Diaphragmatic hernia without obstruction or gangrene Status: Acute Assessment and Plan: -resume home medications -no acute issues (5) Primary hypertension: Code(s): I10 - Essential (primary) hypertension Status: Acute Assessment and Plan: -resume home medications (6) Dyslipidemia: Code(s): E78.5 - Hyperlipidemia, unspecified Status: Acute Assessment and Plan: -cholesterol panel WNL -continue statin (7) Lung nodule: Code(s): R91.1 - Solitary pulmonary nodule Status: Acute Assessment and Plan: -3 mm left upper lobe pulmonary nodule -incidental finding -will need outpatient follow up Patient has been made aware of the pulmonary nodule (8) Blurry vision: Code(s): H53.8 - Other visual disturbances Status: Acute Assessment and Plan: -noted today 06/06/21 -associated with headache and sob -no focal deficits no Concerns for CVA incident therefore a CT of the head is not indicated (9) Orthostatic hypotension: Code(s): I95.1 - Orthostatic hypotension Status: Acute Assessment and Plan: Patient was noted to have positive orthostatic blood pressure. Defer to cardiology for medication management Additional Plan Subjective Date/time seen: 06/07/21 11:10 patient is alert and oriented x4 this morning. Patient was wanting to go home this morning. Unfortunately the patient had positive orthostatics, pending cardiology's evaluation for medication rec recommendations. Patient's heart rate has consistently been in the 40s throughout the night and this morning. He denies any dizziness, headache, or recent falls. No acute events overnight. Review of Systems Review of Systems: All systems reviewed & are unremarkable except as noted in HPI and below Exam Narrative: GENERAL: Well-appearing, well-nourished, and in no acute distress. HEAD:
--- NOTE | 2021-06-07 12:08 | PM.DS ---
DS: Admitting Diagnosis Discharge Date 06/07/2021 Admitting Diagnosis Exertional chest pain Hypertension GERD Pulmonary nodule Pericardial effusion DS: Discharge Diagnosis Discharge Diagnosis (1) Chest pain: Qualifiers: Chest pain type: unspecified Qualified Code(s): R07.9 - Chest pain, unspecified Code(s): R07.9 - Chest pain, unspecified Status: Acute Assessment and Plan: -EKG with sinus bradycardia with first-degree AV block and right bundle branch block compared to previous EKG no new changes. -Troponin has been negative x3. -Labs unremarkable except for elevated D-dimer. CTA with no PE. -BNP minimally elevated at 336. -Small pericardial effusion noted, atherosclerotic coronary artery calcific lesion. -echo 2018 with mild LVH EF 65-70% grade 1 diastolic dysfunction mild MR mild AR mild TR -echo here: Left ventricular hypertrophy with normal systolic function and grade 1 diastolic noncompliance. Sclerotic aortic valve which is not stenotic. Enlarged left atrium. -evaluated by cardiology, angiogram yesterday with mild to moderate disease. -Continue aspirin, Imdur, rosuvastatin. Follow up outpatient with Dr. Orourke Saturday in clinic. (2) Dyspnea: Qualifiers: Dyspnea type: dyspnea on exertion Qualified Code(s): R06.00 - Dyspnea, unspecified Code(s): R06.00 - Dyspnea, unspecified Status: Acute Assessment and Plan: -see above -Chest x-ray with no acute cardiopulmonary disease. -He is a former smoker smoked for 16 years 1/2 pack per day -Possible underlying COPD as well -Needs evaluation with PFT as an outpatient basis. -Add albuterol inhaler p.r.n. (3) Acute pericardial effusion: Code(s): I30.9 - Acute pericarditis, unspecified Status: Acute Assessment and Plan: -as noted on CTA -echo revealed an LVEF of 55-60% with grade 1 diastolic dysfunction -cardiology consulted, appreciate assistance and recommendations -no clinical signs of tamponade -not seen on echo 06/05/21 (4) Hiatal hernia with GERD: Code(s): K21.9 - Gastro-esophageal reflux disease without esophagitis; K44.9 - Diaphragmatic hernia without obstruction or gangrene Status: Acute Assessment and Plan: -resume home medications -no acute issues (5) Primary hypertension: Code(s): I10 - Essential (primary) hypertension Status: Acute Assessment and Plan: -resume home medications (6) Dyslipidemia: Code(s): E78.5 - Hyperlipidemia, unspecified Status: Acute Assessment and Plan: -cholesterol panel WNL -continue statin (7) Lung nodule: Code(s): R91.1 - Solitary pulmonary nodule Status: Acute Assessment and Plan: -3 mm left upper lobe pulmonary nodule -incidental finding -will need outpatient follow up Patient has been made aware of the pulmonary nodule (8) Blurry vision: Code(s): H53.8 - Other visual disturbances Status: Acute Assessment and Plan: -noted today 06/06/21 -associated with headache and sob -no focal deficits no Concerns for CVA incident therefore a CT of the head is not indicated (9) Orthostatic hypotension: Code(s): I95.1 - Orthostatic hypotension Status: Acute Assessment and Plan: Patient was noted to have positive orthostatic blood pressure. Defer to cardiology for medication management DS: Summary Hospital Course Reason for hospitalization: 06/07/21 Hospital Course: The patient is a 70-year-old male with past medical history of bladder cancer, dyslipidemia, hiatal hernia, hypertension and valvular regurgitation. Patient presented to [facility] due to worsening shortness of breath with exertion. Patient presented to the emergency department week prior due to similar episodes. Patient was subsequently admitted to hospitalist service and Cardiology was cons
--- NOTE | 2021-06-07 13:43 | PC.NURSE ---
1220-discharge information given to pt. Questions answered. 1315-IV removed and dressed pt.
--- NOTE | 2021-06-07 13:49 | PC.NURSE ---
1349-pt discharge via wheelchair with tech, pt belongings with pt. Son, picking up pt.
== END 2021-06-07 13:49 | disposition home or self-care (01) ==
LOC: ANHED 18:53 → ANHIMU 18:58
PROVIDERS: Physician Assistant; Specialist; Admitting Provider Internal Medicine; Emergency Provider Emergency Medicine; PCP Family Medicine; Visit Provider Family Medicine
PROC: 4A023N7 Measurement of Cardiac Sampling and Pressure, Left Heart, Percutaneous Approach (ICD-10-PCS; CPT 93452; principal; 2021-06-05 11:30)
DX: I30.9 Acute pericarditis, unspecified (principal); R06.00 Dyspnea, unspecified; I25.10 Atherosclerotic heart disease of native coronary artery without angina pectoris; H53.8 Other visual disturbances; R91.1 Solitary pulmonary nodule; I95.1 Orthostatic hypotension; R07.9 Chest pain, unspecified; R51.9 Headache, unspecified; I35.8 Other nonrheumatic aortic valve disorders; R00.1 Bradycardia, unspecified; E78.00 Pure hypercholesterolemia, unspecified; I10 Essential (primary) hypertension; I65.23 Occlusion and stenosis of bilateral carotid arteries; E78.5 Hyperlipidemia, unspecified; K21.9 Gastro-esophageal reflux disease without esophagitis; K44.9 Diaphragmatic hernia without obstruction or gangrene; Z85.51 Personal history of malignant neoplasm of bladder; Z87.891 Personal history of nicotine dependence
CPT/HCPCS: 36415; 71046; 71275; 80048; 80053; 80061; 82948; 83880; 84484; 85025; 85380; 85610; 85652; 85730; 93005; 93306; 93458; 93880; 99285; A9270; C1887; C1894; G0378; J1644; J2250; J3010; J7030; J7040; Q9967

== ENCOUNTER 2021-06-30 09:10 | Outpatient (CLI) | payer MEDICARE, SELFPAY ==
--- NOTE | 2021-06-30 12:37 | WPDPFTINT ---
PFT Procedure Performed PFT Procedure Performed Plethysmography (Lung Vol) Diffusing Cap (DLCO) Flow Vol Loop Spirometry w/o Bronchodil PFT Interpretation This is a pulmonary function test with spirometry, plethysmography and diffusing capacity. The test was performed and results interpreted in accordance with the 2019 and 2005 ATS/ERS Task Force guidelines respectively using the Global Lung Function Initiative-2012 reference equations. Patient demonstrated good effort and cooperation. Reproducibility criteria were met. The quality of the spirometry maneuver was Grade A. Findings: Spirometry: There is decreased maximal expiratory airflow at all lung volumes. The FVC is 3.66 L, 90% predicted. The FEV1 is 2.25 L, 72% predicted. The FEV1: FVC ratio 61%. Plethysmography: The total lung capacity is 10.65 L, 157% predicted. The functional residual capacity is 8.21 L, 228% predicted. The residual volume is 6.99 L, 293% predicted. Diffusing capacity: The diffusing capacity unadjusted for hemoglobin and carboxyhemoglobin is 22.1, 86% predicted. The diffusing capacity adjusted for alveolar volume is 5.00, 125% predicted. Impression: There is a mild obstructive abnormality. The increase in residual volume is consistent with air trapping from an obstructive abnormality. Hyperinflation is present is demonstrated by the increase in functional residual capacity and total lung capacity and is consistent with an obstructive abnormality. The diffusing capacity is normal. There are no prior studies for comparison
== END 2021-06-30 09:11 | disposition home or self-care (01) ==
LOC: ANHPFT 09:11
PROVIDERS: PCP Family Medicine; Visit Provider Internal Medicine Cardiovascular Disease
DX: R00.1 Bradycardia, unspecified (principal); R06.00 Dyspnea, unspecified
CPT/HCPCS: 94375; 94726; 94729

== ENCOUNTER 2022-06-04 12:56 | Outpatient (CLI) | payer MEDICARE, SELFPAY ==
--- NOTE | ~2022-06-04 | CT_ITS ---
Clinical Indication: Pulmonary nodule CT Scan of the Chest with Contrast: Technique: Contiguous sections were acquired throughout the chest after intravenous administration of 75 cc of Omnipaque 350. Dose reduction technique was used on this scan by utilizing automated exposu re control and iterative reconstruction technique. The dose-length product (DLP) was 257.58 mGy-cm. COMPARISON: 06/04/2021 Findings: There is no evidence of any significant mediastinal, hilar or axillary lymphadenopathy. There is no f illing defect in the pulmonary arterial tree to suggest pulmonary embolus. There is no evidence of ao rtic dissection or aneurysm. There are atherosclerotic calcifications of the aorta. Coronary artery c alcification are present. No pleural effusions present. Minimal pericardial fluid present. Stable probable 3 mm left upper lobe pulmonary nodule (axial image 53). No other pulmonary abnormalit y seen. Images through the upper abdomen reveal questionable minimal bilateral hydronephrosis. Impression: Stable 3 mm left upper lobe pulmonary nodule. Questionable minimal bilateral hydronephrosis. Minimal pericardial fluid. Reviewed, dictated and finalized at location . Impression: Stable 3 mm left upper lobe pulmonary nodule. Questionable minimal bilateral hydronephrosis. Minimal pericardial fluid.
[2022-06-04 14:06] LABS: Estimated Glomerular Filt Rate > 60
== END 2022-06-04 12:57 | disposition home or self-care (01) ==
LOC: ANHIMG 12:58
PROVIDERS: PCP Family Medicine; Visit Provider Physician Assistant
DX: R91.1 Solitary pulmonary nodule (principal)
CPT/HCPCS: 71260; Q9967

== ENCOUNTER 2022-06-28 09:21 | Outpatient (CLI) | payer MEDICARE, SELFPAY ==
--- NOTE | ~2022-06-28 | CT_ITS ---
EXAMINATION: CT abdomen pelvis wo/w con DATE: 06/28/2022 10:01 INDICATION: Bladder cancer TECHNIQUE: Computed tomography (CT) of the abdomen and pelvis was performed without and subsequently with 130 CC Omnipaque 350 intravenous contrast. Automated exposure control and iterative reconstructi on technique were employed. Exam dose: 927.02 mGy-cm total exam DLP. COMPARISON: 11/28/2010 CT urogram FINDINGS: 3 mm peripheral right lower lobe pulmonary nodular density. The lung bases are clear of inf iltrate or consolidation. There is trace pericardial effusion. No hepatic, splenic, pancreatic, adrenal or renal space-occupying mass lesion. The gallbladder is pre sent. No gallbladder wall thickening or pericholecystic fluid or fat stranding. No bile duct or pancr eatic duct dilatation. There is extensive abdominal aortic calcification, iliac arterial calcifications, without aneurysm. N o intraperitoneal or retroperitoneal or pelvic mass lesion or adenopathy or ascites. No bowel obstruction, bowel wall thickening, pneumatosis or intraperitoneal free air. There is a prom inent amount of fecal material in the colon. Prostate enlargement and calcifications. Nonspecific moderate diffuse thickening of the urinary bladd er wall, likely due to prostatomegaly. No focal bladder wall thickening or intraluminal mass lesion o f the urinary bladder is noted. Small fat-containing umbilical hernia. Degenerative changes of the lower thoracic and lumbar spine, most severe at L4-5. Bilateral hip osteo arthritis. IMPRESSION: Prostate enlargement and calcifications; no urinary bladder wall thickening or intralumi nal mass lesion is detected; no hydroureteronephrosis or renal mass lesion Reviewed, dictated and finalized at [facility]. Reviewed, dictated and finalized at location [facility]. IMPRESSION: Prostate enlargement and calcifications; no urinary bladder wall t hickening or intraluminal mass lesion is detected; no hydroureteronephrosis or renal mass lesion
== END 2022-06-28 09:22 | disposition home or self-care (01) ==
PROVIDERS: PCP Family Medicine; Visit Provider Urology
DX: C67.9 Malignant neoplasm of bladder, unspecified (principal); N40.1 Benign prostatic hyperplasia with lower urinary tract symptoms
CPT/HCPCS: 74178; Q9967

== ENCOUNTER 2022-09-24 03:05 | Day surgery (SDC) | payer MEDICARE, SELFPAY ==
[2022-09-11 14:43] VITALS: BMI 26.2
[2022-09-24 07:10] VITALS: BP 158/59; PULSE 63; RESP 18; TEMP 36.3; O2SAT 98; BMI 25.3
[2022-09-24] MEDS: LACTATED RINGERS 1,000 ML 150 ML IV CONT (07:25)
--- NOTE | 2022-09-24 07:45 | PM.HPGS ---
History of Present Illness History of Present Illness Consent: Risks, benefits, and alternatives have been discussed and questions answered. Patient agrees to proceed with procedure. Chief complaint: neoplasm screening Narrative: Yanick Wilson is a 71 year old male Presents for screening colonoscopy. Patient's current weight appetite and bowel movements are normal. Patient denies abdominal pain. He has had no bleeding. Family history noncontributory. Previous colonoscopy more than 10 years ago was unremarkable. Review of Systems Review of Systems: Review of systems noncontributory. FORMERLY [facility] Past Medical History Medical History Bladder cancer Blood glucose elevated Broken wrist CAD (coronary artery disease) Dyslipidemia Hiatal hernia with GERD Hypertension Valvular regurgitation Surgical History Surgical History History of surgery on wrist History of total right knee replacement (TKR) Status post surgical removal and fulguration of bladder neoplasm Family History Family History Mother Hypertension Cerebrovascular accident Family history of malignant neoplasm of urinary bladder Father Family history of cardiovascular disease Acute myocardial infarction Family history of coronary artery disease Social History Social History Smoking packs per day: 1.5 Smoking cigarettes per day: 30.0 Years smoked: 16 Smoking pack-years: 24.00 Smoking status: Former smoker Tobacco type: cigarettes Second hand tobacco smoke exposure: No Smoking end date: 03/25/77 Alcohol intake: current Drinks per week: 6 Alcohol use details: beer occasionally Substance use: never Substance use type: does not use Lack of Transportation: No Lack of Food: Never True Current Housing: I Have Housing Concerned About Future Housing: No Difficulty Paying Gas/Electric Bills: No Difficulty Paying for Meds: No Currently Unemployed: No Education: High School Diploma/GED Difficulty w/ Childcare or Family Care: No Living arrangements: with family Occupation/Education: retired Gender identity (if verbalized by the patient): Male Sexual Orientation (if Verbalized by the Patient): Straight or Heterosexual Spiritual care concerns: No Agree to blood products: Yes Meds Home Medications and Allergies Home Medications Medication Instructions Recorded Confirmed Type hydralazine 50 mg tablet 50 mg PO TID 05/31/21 09/24/22 History carvedilol 3.125 mg tablet 3.125 mg PO Q12H #180 tabs 06/28/21 09/24/22 Rx magnesium oxide 500 mg capsule 1,000 mg PO DAILY 07/17/21 09/24/22 History amlodipine 10 mg tablet 10 mg PO DAILY #90 tabs 02/19/22 09/24/22 Rx albuterol sulfate 90 mcg/actuation 1 inh inhalation Q4H PRN shortness 07/24/22 09/24/22 Rx aerosol inhaler (ProAir HFA) of breath or wheezing #8.5 grams aspirin 81 mg tablet,delayed 81 mg PO DAILY 09/11/22 09/24/22 History release irbesartan 300 mg tablet 300 mg PO DAILY 09/11/22 09/24/22 History multivitamin with minerals-folic 1 tablet PO DAILY 09/11/22 09/24/22 History acid 0.4 mg tablet omeprazole 40 mg capsule,delayed 40 mg PO BID 09/11/22 09/24/22 History release rosuvastatin 10 mg tablet 10 mg PO DAILY 09/11/22 09/24/22 History Allergies Allergy/AdvReac Type Severity Reaction Status Date / Time No Known Allergies Allergy Verified 09/24/22 07:13 Vital Signs Vital Signs - 24 hr 09/24/22 07:10 Temperature 97.3 F L Pulse Rate 63 Respiratory Rate 18 Blood Pressure 158/59 H Pulse Oximetry 98 Oxygen Delivery Room Air Exam Narrative: Physical exam reveals patient to be alert. Vital signs stable. HEENT exam is unremarkable. Patient is anicteric. Lungs are clear to
--- NOTE | 2022-09-24 08:30 | WPDANESEPPF ---
Anes - Initial Pre Proc Eval Procedure: Operation Date: 09/24/22 08:30 Proposed Procedures p Screening Colonoscopy - Jamel Rivera MD Date/Time: 09/24/22 08:30 Surgeon: Jamel Rivera MD Pre Op Diagnosis: neoplasm screening Patient Data Age: 71 Gender: M Height: 1.75 m Weight: 77.8 kg Last Vital Signs Temp 97.3 F L 09/24/22 07:10 Pulse 63 09/24/22 07:10 Resp 18 09/24/22 07:10 BP 158/59 H 09/24/22 07:10 Pulse Ox 98 09/24/22 07:10 O2 Del Method Room Air 09/24/22 07:10 Allergies Allergy/AdvReac Type Severity Reaction Status Date / Time No Known Allergies Allergy Verified 09/24/22 07:13 Home Medications Medication Instructions Recorded Confirmed Type hydralazine 50 mg tablet 50 mg PO TID 05/31/21 09/24/22 History carvedilol 3.125 mg tablet 3.125 mg PO Q12H #180 tabs 06/28/21 09/24/22 Rx magnesium oxide 500 mg capsule 1,000 mg PO DAILY 07/17/21 09/24/22 History amlodipine 10 mg tablet 10 mg PO DAILY #90 tabs 02/19/22 09/24/22 Rx albuterol sulfate 90 mcg/actuation 1 inh inhalation Q4H PRN shortness 07/24/22 09/24/22 Rx aerosol inhaler (ProAir HFA) of breath or wheezing #8.5 grams aspirin 81 mg tablet,delayed 81 mg PO DAILY 09/11/22 09/24/22 History release irbesartan 300 mg tablet 300 mg PO DAILY 09/11/22 09/24/22 History multivitamin with minerals-folic 1 tablet PO DAILY 09/11/22 09/24/22 History acid 0.4 mg tablet omeprazole 40 mg capsule,delayed 40 mg PO BID 09/11/22 09/24/22 History release rosuvastatin 10 mg tablet 10 mg PO DAILY 09/11/22 09/24/22 History Patient hx anesthesia problems: none Family hx anesthesia problems: none Results Review: All pre-operative results and documents have been reviewed as part of the pre-operative evaluation. [facility] Past Medical History Medical History Bladder cancer Blood glucose elevated Broken wrist CAD (coronary artery disease) Dyslipidemia Hiatal hernia with GERD Hypertension Valvular regurgitation Surgical History Surgical History History of surgery on wrist History of total right knee replacement (TKR) Status post surgical removal and fulguration of bladder neoplasm Family History Family History Mother Hypertension Cerebrovascular accident Family history of malignant neoplasm of urinary bladder Father Family history of cardiovascular disease Acute myocardial infarction Family history of coronary artery disease Social History Social History Smoking packs per day: 1.5 Smoking cigarettes per day: 30.0 Years smoked: 16 Smoking pack-years: 24.00 Smoking status: Former smoker Tobacco type: cigarettes Second hand tobacco smoke exposure: No Smoking end date: 03/25/77 Alcohol intake: current Drinks per week: 6 Alcohol use details: beer occasionally Substance use: never Substance use type: does not use Lack of Transportation: No Lack of Food: Never True Current Housing: I Have Housing Concerned About Future Housing: No Difficulty Paying Gas/Electric Bills: No Difficulty Paying for Meds: No Currently Unemployed: No Education: High School Diploma/GED Difficulty w/ Childcare or Family Care: No Living arrangements: with family Occupation/Education: retired Gender identity (if verbalized by the patient): Male Sexual Orientation (if Verbalized by the Patient): Straight or Heterosexual Spiritual care concerns: No Agree to blood products: Yes Anes - Eval Final PreProcedure Day of Procedure 09/24/22 08:30 Patient weight: normal Heart: regular rate and rhythm Lungs: clear to auscultation Airway: Mallampati scale class II Neurological: alert and oriented Last oral intake: >/= 8 hours ASA classification: II
[2022-09-24 09:03] VITALS: BP 134/69; PULSE 63; RESP 17; O2SAT 100
[2022-09-24 09:13] VITALS: BP 147/74; PULSE 61; RESP 18; O2SAT 100
[2022-09-24 09:23] VITALS: BP 156/75; PULSE 64; RESP 16; O2SAT 100
== END 2022-09-24 09:30 | disposition home or self-care (01) ==
PROVIDERS: PCP Family Medicine; Visit Provider Internal Medicine Gastroenterology
PROC: 0DJD8ZZ Inspection of Lower Intestinal Tract, Via Natural or Artificial Opening Endoscopic (ICD-10-PCS; CPT 45378; principal; 2022-09-24 08:30)
DX: Z12.11 Encounter for screening for malignant neoplasm of colon (principal); I25.10 Atherosclerotic heart disease of native coronary artery without angina pectoris; I10 Essential (primary) hypertension; E78.5 Hyperlipidemia, unspecified; Z85.51 Personal history of malignant neoplasm of bladder; K21.9 Gastro-esophageal reflux disease without esophagitis; Z87.891 Personal history of nicotine dependence; Z79.51 Long term (current) use of inhaled steroids; Z79.82 Long term (current) use of aspirin
CPT/HCPCS: G0121; J2704; J7120

== ENCOUNTER 2023-03-12 10:47 | Outpatient (CLI) | payer MEDICARE, SELFPAY | END 2023-03-12 10:48 | disposition home or self-care (01) | LOC: ANHAUDIO 10:48 | PROVIDERS: PCP Family Medicine; Visit Provider Physician Assistant | DX: H90.3 Sensorineural hearing loss, bilateral (principal) | CPT/HCPCS: 92557; 92567 ==

== ENCOUNTER 2023-10-11 11:41 | Outpatient (CLI) | payer MEDICARE, SELFPAY ==
--- NOTE | 2023-10-11 14:20 | ECG_ITS ---
Test Date: 2023-10-11 14:35:44 Measurements Intervals [place] Rate: 60 P: 61 MD: 257 QRS: 15 QRSD: 140 T: 17 QT: 440 QTc: 442 Interpretive Statements SINUS RHYTHM WITH FIRST DEGREE AV BLOCK RIGHT BUNDLE BRANCH BLOCK ABNORMAL ECG No previous ECG available for comparison Electronically Signed On 10-11-2023 14:37:50 CDT by Jose Soria D.O.
== END 2023-10-11 11:42 | disposition home or self-care (01) ==
PROVIDERS: PCP Family Medicine; Visit Provider Urology
DX: E78.00 Pure hypercholesterolemia, unspecified (principal); I10 Essential (primary) hypertension; Z01.818 Encounter for other preprocedural examination; I44.0 Atrioventricular block, first degree
CPT/HCPCS: 93005

== ENCOUNTER 2023-10-15 01:54 | Day surgery (SDC) | payer MEDICARE, SELFPAY ==
[2023-10-11 11:19] VITALS: BMI 25.9
--- NOTE | 2023-10-11 11:27 | PC.NURSE ---
Report to the Outpatient Waiting Room, entrance under the green pavilion located off [facility], at time _0630_ on date _[id number]_. Planned Procedure Time: _0830_. Time changes happen often and if your time is changed the preop area will call you the afternoon before. - You and your visitor will be asked to self-screen and do not enter if you have any COVID symptoms. - A mask is optional within the hospital at this time. Patients may have clear liquids (water, carbonated beverages, clear teas, apple juice) until 3 hours prior to surgery with a maximum of 20 ounces. - No food from midnight until time of surgery Take the following medications with a SIP of water the morning of surgery: ___Amlodipine and Hydralazine DO NOT STOP ANY OF YOUR OTHER PRESCRIPTION MEDICATIONS PRIOR TO SURGERY ?EXCEPT THE FOLLOWING Medications to discontinue per physician Multivitamin and Magnesium Date to take last lpsh___[id number] Please no make-up, nail gambian, hairspray, perfume, deodorant, or body powder the day of surgery. No jewelry (including any body piercings) or valuables the day of surgery, leave them at home. Please take a shower or bath the night before, or the morning of, surgery with an antibacterial soap. Wear comfortable, loose fitting clothing. - Jewelry must be removed prior to entering the operating room. Rings and piercings that are not removed may be cut off. - The hospital will not accept responsibility for valuables. - Please leave all valuables, including medications, at home the day of surgery. If you are going home after surgery, a licensed emt driver must drive you home. - NO public transportation without another adult if you receive anesthesia. - We recommend that an adult stay with you for 24 hours following discharge. - We also recommend that you do not drive, make important decision, drink alcoholic beverages, or take any drugs that were not prescribed by your health care provider for at least 24 hours after your discharge time. Follow any additional instructions given to you from your surgeon. If you or anyone in your household have experienced Covid symptoms in the past week, please notify your surgeon or the nurse liaison at the phone number below for possible testing. Telephone instructions given to __Clifford___and asked if any additional questions and then verbalized understanding. Patient advised to call surgeon office or pre surgery nurse liaison [phone] if any additional questions.
[2023-10-15] VITALS (8 sets, daily range): BP systolic 130–170; BP diastolic 49–60; PULSE 55–81; RESP 12–19; TEMP 36.4–37.1; O2SAT 97–100
--- NOTE | 2023-10-15 07:09 | WPDANESEPPF ---
Anes - Initial Pre Proc Eval Procedure: Operation Date: 10/15/23 08:30 Proposed Procedures p Bilateral Hydrocelectomy with Orchiopexy - Audi Valencia MD Date/Time: 10/15/23 07:09 Surgeon: Audi Valencia MD Pre Op Diagnosis: bilateral hydrocele Patient Data Age: 72 Gender: M Height: 1.77 m Weight: 78.8 kg Last Vital Signs Temp 37.1 C 10/15/23 07:01 Pulse 55 L 10/15/23 07:01 Resp 18 10/15/23 07:01 BP 170/56 H 10/15/23 07:01 Pulse Ox 98 10/15/23 07:01 O2 Del Method Room Air 10/15/23 07:01 Allergies Allergy/AdvReac Type Severity Reaction Status Date / Time No Known Allergies Allergy Verified 10/15/23 06:59 Home Medications Medication Instructions Recorded Confirmed Type hydralazine 50 mg tablet 75 mg PO TID 05/31/21 10/15/23 History magnesium oxide 500 mg capsule 1,000 mg PO DAILY 07/17/21 10/15/23 History albuterol sulfate 90 mcg/actuation 1 inh inhalation Q4H PRN shortness 07/24/22 10/15/23 Rx aerosol inhaler (ProAir HFA) of breath or wheezing #8.5 grams multivitamin with minerals-folic 1 tablet PO DAILY 09/11/22 10/15/23 History acid 0.4 mg tablet irbesartan 300 mg tablet 300 mg PO DAILY #90 tabs 03/11/23 10/15/23 Rx aspirin 81 mg tablet,delayed 81 mg PO DAILY #90 tabs 06/13/23 10/15/23 Rx release omeprazole 40 mg capsule,delayed 40 mg PO BID #180 caps 06/13/23 10/15/23 Rx release rosuvastatin 10 mg tablet 10 mg PO DAILY #90 tabs 06/13/23 10/15/23 Rx amlodipine 10 mg tablet 10 mg PO DAILY #90 tabs 08/15/23 10/15/23 Rx Patient hx anesthesia problems: none Family hx anesthesia problems: none Results Review: All pre-operative results and documents have been reviewed as part of the pre-operative evaluation. FORMERLY [facility] Past Medical History Medical History Bladder cancer Blood glucose elevated Broken wrist CAD (coronary artery disease) Dyslipidemia Hiatal hernia with GERD Hypertension Valvular regurgitation Surgical History Surgical History History of surgery on wrist History of total right knee replacement (TKR) Status post surgical removal and fulguration of bladder neoplasm Family History Family History Mother Hypertension Cerebrovascular accident Family history of malignant neoplasm of urinary bladder Father Family history of cardiovascular disease Acute myocardial infarction Family history of coronary artery disease Social History Social History Smoking packs per day: 1.5 Smoking cigarettes per day: 30.0 Years smoked: 12 Smoking pack-years: 18.00 Smoking status: Former smoker Tobacco type: cigarettes Second hand tobacco smoke exposure: No Smoking end date: 10/10/77 Alcohol intake: current Drinks per week: 14 Alcohol use details: beer occasionally Substance use: never Substance use type: does not use Lack of Transportation: No Lack of Food: Never True Current Housing: I Have Housing Concerned About Future Housing: No Difficulty Paying Gas/Electric Bills: No Difficulty Paying for Meds: No Currently Unemployed: No Education: High School Diploma/GED Difficulty w/ Childcare or Family Care: No Living arrangements: with family Occupation/Education: retired Gender identity (if verbalized by the patient): Male Sexual Orientation (if Verbalized by the Patient): Straight or Heterosexual Spiritual care concerns: No Agree to blood products: Yes Anes - Eval Final PreProcedure Day of Procedure 10/15/23 07:09 Patient weight: normal Heart: regular rate and rhythm Lungs: clear to auscultation Airway: Mallampati scale class II and special considerations poor extension Neurological: alert and oriented Last oral intake: >/= 8 hours ASA classification: III
[2023-10-15] MEDS: LACTATED RINGERS 1,000 ML 30 ML IV CONT ×2 (07:15→09:37)
--- NOTE | 2023-10-15 07:25 | WPDHPUPDATE1 ---
History and Physical Update Update Date/Time: 10/15/23 07:25 History and Physical has been reviewed, including an updated exam of the patient. There are NO changes in the patient's condition. Risks, benefits, and alternatives have been discussed and questions answered. Patient agrees to proceed with procedure. Proceed with bilateral hydrocelectomy and orchiopexy.
[2023-10-15] MEDS: LIDOCAINE HCL 1% LOCAL INJ 20 ML VIAL INFILTRATE (08:06)
[2023-10-15] MEDS: ceFAZolin 2 GM/D5W 50 ML 2 GM/50 ML BAG IVPB (08:06)
[2023-10-15] MEDS: NEOMYCIN/POLYMYXIN/BACITRACIN OINTMENT 15 GM TUBE 1 APPLIC TOPICAL (08:49)
--- NOTE | 2023-10-15 09:30 | P.OP_ITS ---
Procedure Note - Detailed Date of Procedure 10/15/23 Pre-op Diagnosis bilateral hydrocele Post-op Diagnosis Other (Bilateral hydroceles with bilateral epididymal cysts) Procedure Performed Bilateral hydrocelectomy and bilateral excision of epididymal cysts with bilateral orchiopexy Surgeon Audi Valencia MD Anesthesia General Description of Procedure Patient was taken the operative suite correctly identified. Once anesthesia was obtained was prepped and draped usual sterile fashion. A midline incision was made in the scrotal area. This was carried down to the tunical liver. The left hydrocele was brought out into the operative field. It was opened and drained of approximately 300 cc of straw-colored fluid. It was noted the patient also had an epididymal cyst measuring a couple cm. This was excised. The edges were all fulgurated. Quarter-inch Tejinder drain was then placed through a separate stab incision and secured using 3-0 chromic. Orchiopexy was performed using 3-0 Ethibond in a three-point fracture. Similar procedure was then done on the right side. The findings were the same. [place] was then closed using 3-0 chromic in a running fashion. Skin was closed using 3-0 chromic in a running fashion also. Skin was anesthetized with 1% lidocaine. Patient tolerated procedure well without any complications and was taken recovery stable condition. He will remove the [place] drains on or Saturday. He will follow-up in 3-4 weeks time. This completes dictation. Please send a copy of op note to my office. Estimated Blood Loss 5 Drains Yes Packing No Pathology Yes Complications No immediate complications Condition Stable Disposition PACU
[2023-10-15] MEDS: ONDANSETRON INJ 4 MG/2 ML VIAL IV PUSH (11:18)
== END 2023-10-15 11:25 | disposition home or self-care (01) ==
PROVIDERS: PCP Family Medicine; Visit Provider Urology
PROC: (CPT 55040; principal; 2023-10-15 08:30)
DX: N43.3 Hydrocele, unspecified (principal); N50.3 Cyst of epididymis; I25.10 Atherosclerotic heart disease of native coronary artery without angina pectoris; I10 Essential (primary) hypertension; E78.5 Hyperlipidemia, unspecified; K21.9 Gastro-esophageal reflux disease without esophagitis; K44.9 Diaphragmatic hernia without obstruction or gangrene; Z85.51 Personal history of malignant neoplasm of bladder; Z79.51 Long term (current) use of inhaled steroids; Z79.82 Long term (current) use of aspirin; Z87.891 Personal history of nicotine dependence
CPT/HCPCS: 55041; 88302; 88305; 93005; A9270; J0690; J1100; J1170; J2405; J2704; J3010; J7120

== ENCOUNTER 2024-12-04 13:51 | Outpatient (CLI) | payer MEDICARE, SELFPAY ==
--- OUTSIDE RECORDS SUMMARY | 2004-10-12 10:15 | XMS_ITS | Continuity of Care Document ---
Author Organization [facility] [place] [address] [place] [address] [address] [place] [address] Phone Care Team Providers Care Button Station Worker Name Role Phone Abbott OD, Jamel Unavailable Unavailable Advance Directives Directive Yes / No Effective Date File Name No Information Encounters Encounter Description Practice Location Reason(s) For Visit Diagnoses Date Provider Providers Copied on Encounter [facility], [id number] [place] [address] [address], [place], [place], [id number], [place] tel:[phone] [facility] No Information 1-200 5 Abbott OD Jamel. [address] , [address], [place], [address], [place]. tel:[phone] Family History Family Member Type Diagnosis Age At Onset No Information Payers Payer name Insurance type Covered republican ID Authoriza tion(s) [employer] Plan CI [id number] Social History Type Description Quantity Date Captured Comments Sex Male Smoking Status No Information Chief Complaint And Reason For Visit No Information Reason For Referral Reason For Referral No Information History Of Present Illness Encounter Date Complaint History Of Prese nt Illness No Information Functional Status Date Functional Assessmen t No Information Instructions Date Instruction Additional Infor mation No Information Assessments Type Assessment Date No Information Patient Care Teams Name Effective Dates (start - stop) Status Members No Information
--- NOTE | ~2024-12-04 | XR_ITS ---
EXAMINATION: XR shoulder RT min 2V, 12/04/2024 14:04 CDT HISTORY: M25.511 - Pain in right shoulder, CHRONIC PAIN SUPERIOR COMPARISON: No comparisons available. Findings: No acute fracture or malalignment. Severe degenerative changes, underlying rotator cuff injury suspected Soft tissues unremarkable. Impression: No acute fracture or malalignment. Reviewed, dictated and finalized at location A. Impression: No acute fracture or malalignment.
--- OUTSIDE RECORDS SUMMARY | 2024-12-04 14:38 | XMS_ITS | Encounter Summary ---
Author Organization [facility] Address [address] [place] [address] Care Team Providers Care Chicken Hanger Name Role Phone Chao Matthews MD Primary Care Provider [phone] Betsy Denis MD Unavailable [phone] Sushma Luna Unavailable [phone] Encounter Details Date Type Department Care Team (Late st Contact Info) Description 11/18/2018 Lab Requisition [facility] Care Pathology Lab [address] [place] [address] Renee Hansen MD [address] [place], [place] [id number] Malignant neoplasm of bladder Social History Tobacco Use Types Packs/Day Years Used Date Smoking Tobacco: Never Assessed Sex and Gender Information Value Date Recorded Sex Assigned at Not on file Legal Sex Male 2:30 PM CDT Gender Identity Not on file Sexual Orientation Not on file documented as of this encounter Plan of Treatment Not on file documented as of this encounter Procedures Procedure Name Priority Date/Time Associated Diagnosis Comments PATHOLOGY TISSUE Routine 11/17/2018 9:09 AM CDT Malignant neoplasm of bladder documented in this encounter Results * PATHOLOGY TISSUE (11/17/2018 9:09 AM CDT) Case Report Surgical Pathology Report Case: [id number] Authorizing Provider: Renee Hansen MD Collected: 11/17/2018 09:09 AM Ordering Location: [facility] Care [facility]ology Lab Received: 11/18/2018 03:36 PM Pathologist: David Grier MD Specimen: Urine 11/19/2018 12:58 PM CDT [facility] Final Diagnosis Urine, voided, cytopathology: -Negative for high-grade urothelial neoplasia -Hypocellular specimen with a few degenerated epithelial cells 11/19/2018 12:58 PM CDT [facility] at 1258 CDT Microscopic Description and Comment Performed. 11/19/2018 12:58 PM CDT [facility] Clinical History The patient is a 67 year-old male. 11/19/2018 12:58 PM CDT [facility] Gross Description Prepared slides received from [facility] labeled, [id number]. All material will be returned. 11/19/2018 12:58 PM CDT [facility] Disclaimer The performance characteristics of all immunohistochemical and indirect immunofluorescence stains (if any) cited in this report were determined by the [facility]opathology Laboratory of [facility]. Some of these tests were developed by our own laboratory and have not been cleared or approved by the US Food and Drug Administration. The FDA does not require this test to go through premarket FDA review. These tests are used for clinical purposes. They should not be regarded as investigational or for research. This laboratory is certified under the Clinical Laboratory Improvement Amendments (CLIA) as qualified to perform high complexity clinical laboratory testing. This case has been personally reviewed and interpreted by the attending (teaching) pathologist. 11/19/2018 12:58 PM CDT [facility] Embedded Images 11/19/2018 12:58 PM CDT [facility] Pathology/Cytolo gy URINE / Unknown 11/17/2018 9:09 AM CDT 11/18/2018 3:36 PM CDT us Renee Hansen MD LAB - PATHOLOGY/CYTOLOGY ORDERAB LES Final Result [facility] [address] [place] [address], [facility] [phone] documented in this encounter Visit Diagnoses Diagnosis Malignant neoplasm of bladder (HCC) documented in this encounter Care Teams Chicken Hanger Relationship Specialty Start Date End Date Chao Matthews MD [address] [place] [address] PCP - General 11/18/18 Betsy Denis MD [address] [id number] PCP - Attributed-Colin ARMENDARIZ 03/25/24 Sushma Luna Care Coordination Specialist Care Management 07/24/24 09/07/24 documented as of this encounter
--- OUTSIDE RECORDS SUMMARY | 2024-12-04 14:38 | XMS_ITS | Clinical Summary ---
Author Organization [facility] Address [facility] [place] [address] Care Team Providers Care Director Of Casework Department Name Role Phone Serene Calloway MD Primary Care Provider [phone] Allergies No known active allergies Medications omeprazole (PriLOSEC) 40 mg capsule take 1 capsule by oral route every day before a meal 0 0 6 Active irbesartan (AVAPRO) 300 mg tablet 8 Active trospium (SANCTURA) 20 mg tablet Take 1 tablet (20 mg total) by mouth daily 2 Active aspirin 81 mg enteric coated tablet Take 1 tablet (81 mg total) by mouth every morning 2 Active rosuvastatin (CRESTOR) 10 mg tablet Take 1 tablet (10 mg total) by mouth every morning 2 Active magnesium oxide 500 mg capsule Take 1 tablet by mouth daily Active coenzyme Q10 200 mg capsule Take 1 capsule (200 mg total) by mouth daily Active amLODIPine (NORVASC) 10 mg tablet Take 1 tablet (10 mg total) by mouth daily 3 Active albuterol HFA (PROVENTIL HFA,VENTOLIN HFA,PROAIR HFA) 90 mcg/actuation inhaler 1 INHALTION EVERY 4 HOURS NEEDED FOR SHORTNESS OF BREATH OR WHEEZING 4 Active hydrALAZINE (APRESOLINE) 50 mg tablet Take 1.5 tablets (75 mg total) by mouth 3 (three) times a day 405 tablet 3 4 Active hydrALAZINE (APRESOLINE) 25 mg tablet TAKE ONE TABLET BY MOUTH IN COMBINATION WITH A 50 MG DAILY THREE TIMES DAILY 270 tablet 1 5 Active Active Problems Problem Noted Date Diagnosed Date Coronary artery disease invo lving seneca coronary artery of seneca heart without angina pectoris 12/18/2021 Hospital discharge follow-up 06/13/2021 Dyspnea on exertion 01/05/2016 Overview (06/28/2016): CISNEROS (dyspnea on exertion) Edema of lower extremity 01/05/2016 Overview (06/28/2016): Bilateral edema of lower extremity Preoperative state 01/05/2016 Overview (06/28/2016): Preoperative cardiovascular examination Essential hypertension 01/05/2016 Overview (06/28/2016): Essential hypertension Resolved Problems Problem Noted Date Diagnosed Date Resolved Date Chest pain on exertion 01/05/201612/18 Overview (06/28/2016): Exertional chest pain Surgical History Surgery Date Site/Laterality Comments REPLACEMENT TOTAL KNEE FRACTURE SURGERY ROTATOR CUFF REPAIR Medical History Medical History Date Comments Hypertension Hypertension Hx Other Medical Bladder, resect ed by DR. moore; Comments: [facility] 01/05/2016 - Hx Other Medical Surgery for lef t wrist fx; Comments: U 01/05/2016 - Gastroesophageal reflux disease GERD Hx Other Medical Cancer, bladder ; Comments: [facility] 01/05/2016 - Sick sinus syndrome (HCC) Bradycardia Cancer (HCC) Family History Medical History Relation Name Comments Heart attack Father Myocardial infa rction; Cause of : Myocardial infarction Stroke Mother Stroke; Hyperlipidemia Other 1 Family histor y of Hyperlipidemia; Stroke Other 2 Family history of Stroke; Relation Name Status Comments Father (Age 77) Mother (Age 75) Other 1 Other 2 Social History Tobacco Use Types Packs/Day Years Used Date Smoking Tobacco: Former Smokeless Tobacco: Never Tobacco Cessation:Counseling Given: Not Answered Comments:Quit at age 27 Alcohol Use Standard Drinks/Week Comments Yes 3 (1 standard drink = 0.6 oz pur e alcohol) Sex and Gender Information Value Date Recorded Sex Assigned at Not on file Legal Sex Male 10:16 AM MECHANICAL DETAILER Gender Identity Not on file Sexual Orientation Not on file Obstetrics History Last Filed Vital Signs Vital Sign Reading Time Taken Comments Blood Pressure 139/50 04/20/2024 8:36 AM MECHANICAL DETAILER Pulse 65 04/20/2024 8:36 AM MECHANICAL DETAILER Temperature - - Respiratory Rate - - Oxygen Saturation 95% 04/20/2024 8:36 AM MECHANICAL DETAILER Inhaled Oxygen Concentration - - Weight 81.3 kg (179 lb 3.2 oz) 04/20/2024 8:36 A M MECHANICAL DETAILER Height 177.8 cm (5' 10) 04/20/2024 8:36 AM MECHANICAL DETAILER Body Mass Index 25.71 04/20/2024 8:36 AM MECHANICAL DETAILER Plan of Treatment Health Maintenance Due Date Last Done Comments Colon Cancer Screening-Colonoscopy 1950 Depression Screening 1950 Fall Risk Assessment 1950 Hepatitis C Screening 1950 Zoster Vaccine (1 of 2) 2000 Abdominal Aortic Aneurysm (A AA) Screen 11/24/2015 Well Visit 65+ 11/24/2015 Pneumococcal vaccine 65+ (2 of 2 - PCV) 09/07/2017 09/07/2016 DTaP/Tdap/Td Vaccine (2 - Td or Tdap) 01/27/2022 01/28/2012, 05/26/2002 Covid-19 Vaccine (4 - 2024-2 6 season) 2024 03/02/2021, 06/19/2020, 05/22/2020 Influenza Vaccine (#1) 2024 , 12/22/2018, 12/18/2017, Additional history exists Hepatitis B Screening Completed 05/19/2007 , 12/17/2006, 11/15/2006 [facility] [employer] [facility] [facility] MEDICARE [employer] [facility] Care Teams Director Of Casework Department Relationship Specialty Start Date End Date Serene Calloway MD PCP - General Family Medicine 06/01/21
--- OUTSIDE RECORDS SUMMARY | 2024-12-04 14:38 | XMS_ITS | Clinical Summary ---
Author Organization [facility] Address [address] [place] [address] Care Team Providers Care Board Machine Set Up Operator Name Role Phone Chao Matthews MD Primary Care Provider [phone] Betsy Denis MD Unavailable [phone] Source Comments [facility],non-owned Affiliates and Associated Physician Practices is amultiple site organization consisting of ambulatory clinics and hospital sitesin [place], [place], [place] and [place]. This disclosure is being madepursuant to the Care Everywhere program and may not contain all information available regarding this patient. Last updated 17.[facility] [employer] Social History Tobacco Use Types Packs/Day Years Used Date Smoking Tobacco: Never Assessed Sex and Gender Information Value Date Recorded Sex Assigned at Not on file Legal Sex Male 2:30 PM CDT Gender Identity Not on file Sexual Orientation Not on file Plan of Treatment Health Maintenance Due Date Last Done Comments COLOGUARD (AGES 45-75) - COL ON CA SCREENING 1950 COLON MONITORING 1950 COLONOSCOPY - COLON CA SCREENING 1950 CT COLONOGRAPHY - COLON CA SCREENING 1950 Colorectal Cancer Screening 1950 FIT - COLON CA SCREENING 1950 FLEX SIG - COLON CA SCREENING 1950 LIPID TESTING 1950 HEPATITIS C SCREENING 11/18/1968 DTAP/TDAP/TD VACCINES (1 - Tdap) 1969 PNEUMOCOCCAL VACCINE 50+ (1 of 1 - PCV) 2000 ZOSTER VACCINE (1 of 2) 2000 DEPRESSION SCREENING 03/25/2024 MEDICARE AWV CALENDAR YEAR 2024 COVID-19 VACCINE (1 - 2023-2 5 season) 2024 INFLUENZA VACCINE (#1) 2024 Respiratory Syncytial Virus (RSV) Vaccine Pt: or over 60 yrs (1 - 1-dose 75+ series) 2025 HEPATITIS B VACCINE Aged Out No longe r eligible based on patient's age to complete this topic HIB VACCINE Aged Out No longer eligi ble based on patient's age to complete this topic HPV VACCINE Aged Out No longer eligi ble based on patient's age to complete this topic MENINGOCOCCAL (Group B) VACC INE SHARED DECISION-MAKING Aged Out No longer eligibl e based on patient's age to complete this topic MENINGOCOCCAL GROUPS A/C/Y/W VACCINE Aged Out No longer eligible b ased on patient's age to complete this topic Insurance * Guarantor: YANICK WILSON Account Type Relation to Patient Date of Phone Billing Address Personal/Family [address] [place] [address] [employer] MED[employer]ARE ADV SELF PAY NO INSURANCE Member Subscriber Plan / Payer (Ef fective for All Dates) Name:Yanick Wilson Member ID:Not on file Relation to Subscriber:Not on file Name:YANICK WILSON Subscriber ID:Not on file Address: [address] [place] [phone] Payer ID:Not on file Group ID:Not on file Type:Self Pay Address: [place], [place] * Guarantor: YANICK WILSON Account Type Relation to Patient Date of Phone Billing Address Personal/Family [address] [place] [phone] [employer] MEDICARE ADV SELF PAY NO INSURANCE Member Subscriber Plan / Payer (Ef fective for All Dates) Name:Herber Wilsonifford Member ID:Not on file Relation to Subscriber:Not on file Name:HERBER WILSONYANICK Subscriber ID:Not on file Address: [address] [place] [phone] Payer ID:Not on file Group ID:Not on file Type:Self Pay Address: [place], [place] * Guarantor: HERBER WILSONYANICK Account Type Relation to Patient Date of Phone Billing Address Personal/Family [address] [place] [phone] [employer] MEDICARE ADV SELF PAY NO INSURANCE Member Subscriber Plan / Payer (Ef fective for All Dates) Name:Herber Wilsonifford Member ID:Not on file Relation to Subscriber:Not on file Name:KATIE,YANICK Subscriber ID:Not on file Address: [address] [place] [phone] Payer ID:Not on file Group ID:Not on file Type:Self Pay Address: [place], [place] Care Teams Board Machine Set Up Operator Relationship Specialty Start Date End Date Chao Matthews MD [address] [address] PCP - General 11/18/18 Betsy Denis MD [address] [phone] PCP - Attributed-Colin ARMENDARIZ 03/25/24
--- OUTSIDE RECORDS SUMMARY | 2024-12-04 14:38 | XMS_ITS | Encounter Summary ---
Author Organization [facility] Address [address] [place] [address] Care Team Providers Care Fireworks Maker Name Role Phone Chao Matthews MD Primary Care Provider [phone] Chao Matthews MD Primary Care Provider [phone] Betsy Holloway MD Primary Care Provider [phone] Serene Calloway MD Primary Care Provider Encounter Details Date Type Department Care Team (Late st Contact Info) Description 02/28/2016 Orders Only [facility] [address] [place] [id number] Scanning, Provider Social History Tobacco Use Types Packs/Day Years Used Date Smoking Tobacco: Never Alcohol Use Standard Drinks/Week Comments No 0 (1 standard drink = 0.6 oz pur e alcohol) Sex and Gender Information Value Date Recorded Sex Assigned at Not on file Legal Sex Male 10:16 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 Gender Identity Not on file Sexual Orientation Not on file documented as of this encounter Plan of Treatment Not on file documented as of this encounter Procedures Procedure Name Priority Date/Time Associated Diagnosis Comments SCAN - RADIOLOGY/IMAGING 02/28/2016 SCAN - LABS 02/28/2016 documented in this encounter Results * SCAN - LABS (02/28/2016) us Provider Scanning Final Result * SCAN - RADIOLOGY/IMAGING (02/28/2016) Anatomical Region Laterality Modality Other us Provider Scanning Final Result documented in this encounter Visit Diagnoses Not on filedocumented in this encounter Care Teams Fireworks Maker Relationship Specialty Start Date End Date Chao Matthews MD [address] [place] [address] PCP - General 06/22/16 11/27/17 Chao Matthews MD [address] [place] [address] PCP - General 01/19/16 06/21/16 Betsy Holloway MD [address] [place] [address] PCP - General Family Practice 11/28/17 05/31/21 Serene Calloway MD [address] [place] [address] PCP - General Family Medicine 06/01/21 documented as of this encounter
== END 2024-12-04 13:52 | disposition home or self-care (01) ==
PROVIDERS: PCP Family Medicine; Visit Provider Student in an Organized Health Care Education/Training Program
DX: M25.511 Pain in right shoulder (principal)
CPT/HCPCS: 73030